=== PATIENT | male | born 1975 | race Caucasian/White ===

== ENCOUNTER 2016-05-08 09:05 | Emergency (ER) | payer SELFPAY ==
[2016-05-08 09:19] VITALS: BP 110/76
[2016-05-08] MEDS ORDERED: METOCLOPRAMIDE HCL 10 MG TABLET PO ONE (10:12)
[2016-05-08] MEDS ORDERED: DIPHENHYDRAMINE HCL 25 MG CAPSULE PO ONE (10:13)
[2016-05-08] MEDS ORDERED: DICYCLOMINE HCL 20 MG TABLET PO ONE (10:13)
[2016-05-08 10:52] LABS: ABSOLUTE LYMPHOCYTES (AUTO) 3.2 10^3/uL (0.5-4.7); ABSOLUTE MONOCYTES (AUTO) 0.8 10^3/uL (0.1-1.4); ABSOLUTE NEUT (AUTO) 9.9 10^3/uL (1.7-8.2); BASOPHILS % (AUTO) 0.3 % (0-2); EOSINOPHILS % (AUTO) 0.3 % (0-6); HEMATOCRIT 42.1 % (37.9-51.0); HGB HCT DIFFERENCE -0.1; LYMPHOCYTES % (AUTO) 22.9 % (13-45); MEAN CORPUSCULAR HEMOGLOBIN 28.3 pg (27.0-33.4); MEAN CORPUSCULAR HGB CONC 33.3 g/dL (32.0-36.0); MEAN CORPUSCULAR VOLUME 85 fl (80-97); MONOCYTES % (AUTO) 5.6 % (3-13); RED BLOOD COUNT 4.95 10^6/uL (4.35-5.55); RED CELL DISTRIBUTION WIDTH 14.9 % (11.5-14.0); SEGMENTED NEUTROPHILS % (AUTO) 70.9 % (42-78)
[2016-05-08 10:55] LABS: APPEARANCE,URINE CLEAR; BILIRUBIN,URINE NEGATIVE (NEGATIVE); GLUCOSE, URINE NEGATIVE (NEGATIVE); KETONES,URINE TRACE mg/dL (NEGATIVE); LEUKOCYTE ESTERASE,URINE NEGATIVE (NEGATIVE); NITRITE,URINE NEGATIVE (NEGATIVE); PROTEIN,URINE NEGATIVE (NEGATIVE); URINE SPECIFIC GRAVITY 1.014; UROBILINOGEN,URINE NEGATIVE mg/dL (<2.0)
[2016-05-08 11:13] LABS: ALANINE AMINOTRANSFERASE 20 U/L (21-72); ALBUMIN 3.7 g/dL (3.5-5.0); ALKALINE PHOSPHATASE 60 U/L (38-126); ANION GAP 7 (5-19); ASPARTATE AMINO TRANSFERASE 19 U/L (17-59); BILIRUBIN,TOTAL 0.8 mg/dL (0.2-1.3); BLOOD UREA NITROGEN 12 mg/dL (7-20); CALCIUM 9.3 mg/dL (8.4-10.2); CARBON DIOXIDE 28 mmol/L (22-30); CHLORIDE 104 mmol/L (98-107); CREATININE RESULT 0.71 mg/dL (0.52-1.25); GLUCOSE 82 mg/dL (75-110); LIPASE 72.8 U/L (23-300); POTASSIUM 4.6 mmol/L (3.6-5.0); SODIUM 138.9 mmol/L (137-145); TOTAL PROTEIN 5.9 g/dL (6.3-8.2)
--- NOTE | 2016-05-08 11:58 | ER Document Report ---
ED GI/ - General Chief Complaint: Abdominal Pain Stated Complaint: STOMACH PAIN Notes: Patient is complaining of pain in the abdomen, this time for the past week. He has had these abdominal pains off and on for a couple of years, since 2014. His last episode was about 3 months ago. On a visit to this emergency department in 08/03/2014, patient had lab workups as well as an ultrasound of his abdomen and his gallbladder and pancreas were normal. He was referred to a flight hostess, but says he was not able to go. The pain he is experiencing is constant and feels as if someone is stabbing him and he points to the very lower portion of his sternum and upper epigastric region. He says that area swells up sometimes. Patient has been nauseated but not vomiting. Has had normal bowel movements except sometimes they're like "paste". Has not seen any blood in his stools or recurrent stools are greenish black in color. Has some burning occasionally with urination. Just getting over a cold. Has not had any fevers. Denies any abdominal surgeries. On no medications. TRAVEL OUTSIDE OF THE [place] IN LAST 30 DAYS: No - Related Data Allergies/Adverse Reactions: codeine [Codeine] Allergy (Verified 05/08/16 09:17) Penicillins Allergy (Verified 05/08/16 09:17) yellow jackets Allergy (Uncoded 05/08/16 09:17) Past Medical History - Social History Smoking Status: Current Every Day Smoker Cigarette use (# per day): Yes Chew tobacco use (# tins/day): No Frequency of alcohol use: None Drug Abuse: None Family History: Reviewed & Not Pertinent, Malignancy - liver, lung cancers, Other - multiple MIs under 50yo father, grandfather, uncle Patient has suicidal ideation: No Patient has homicidal ideation: No - Past Medical History Cardiac Medical History: Reports: Hx Atrial Fibrillation, Hx Hypertension Pulmonary Medical History: Reports: Hx Asthma - childhood Neurological Medical History: Reports: Hx Seizures GI Medical History: Denies: Hx Cirrhosis, Hx Gastritis, Hx Gastroesophageal Reflux Disease, Hx Hepatitis, Hx Hiatal Hernia, Hx Irritable Bowel, Hx Ulcer Past Surgical History: Reports: Hx Oral Surgery - reconstructive, Hx Orthopedic Surgery - right hand, Hx Tonsillectomy - and adenoids - Immunizations Immunizations up to date: Yes Hx Diphtheria, Pertussis, Tetanus Vaccination: Yes - unknown Review of Systems - Review of Systems Notes: REVIEW OF SYSTEMS: CONSTITUTIONAL : Denies fever. EENT: Denies eye, ear, nose or mouth or throat pain or other symptoms. CARDIOVASCULAR: Denies chest pain. RESPIRATORY: Denies cough, chest congestion, or shortness of breath. GASTROINTESTINAL: See history of present illness. GENITOURINARY: See history of present illness. MUSCULOSKELETAL: Denies back or neck pain. Denies joint pain or swelling. SKIN: Denies rash or skin lesions. NEUROLOGICAL: Denies LOC or altered mental status. Denies headache. Denies sensory loss or motor deficits. PSYCHIATRIC: Denies anxiety or stress. Denies depression. ALL OTHER SYSTEMS REVIEWED AND NEGATIVE. Physical Exam - Vital signs Vitals: Temp Pulse Resp BP Pulse Ox 97.2 F 90 22 H 110/76 90 L 05/08/16 09:17 05/08/16 09:17 05/08/16 09:17 05/08/16 09:17 05/08/16 09:17 Interpretation: Normal - Notes Notes: PHYSICAL EXAMINATION: GENERAL: Well-appearing, in no acute distress. Vital signs are all normal. HEAD: Atraumatic, normocephalic. NECK: Normal range of motion, supple. LUNGS: Breath sounds clear and equal bilaterally. HEART: Regular rate and rhythm without murmurs. ABDOMEN: Soft, some tenderness in the epigastrium and also tender at the xiphoid process of the sternum. No guarding or rebound. No masses felt. BACK: No tenderness throughout entire back. EXTREMITIES: Normal range of motion without pain. SKIN: Warm, dry, no rashes. Course - Re-evaluation Re-evalutation: 05/08/16 12:02 Before lab results were returned, patient said he wanted to go outside and smoke a cigarette. Said he was willing to sign out AMA to be able to smoke. Was advised that we don't permit patients to go out and smoke cigarettes and he became rather disagreeable and nasty and said he would just sign out AMA and leave. I overheard a conversation between the patient and the nurse, I did not get an opportunity to talk to the patient. At this time, patient is not in his room and cannot be found in the emergency department, including the waiting rooms and outdoors. Labs recorded show an elevated WBC of 14,000, but otherwise are essentially normal. I was considering ordering a CT scan of the patient's abdomen, but cannot do so, unless he can be located or returns. I attempted to contact the patient by calling the phone number given on his chart and got a message from [employer] that the wireless customer I was trying to reach was not available. It did not offer me the opportunity to leave a message or to put in a call back number. I then tried to call the patient's mother's phone number [phone] and a [employer] message came one saying that the number I had dialed had been changed or disconnected or couple other possibilities, but I could not reach the mother or leave a message. 05/08/16 12:37 - Vital Signs Vital signs: Temp Pulse Resp BP Pulse Ox 97.2 F 90 22 H 110/76 90 L 05/08/16 09:17 05/08/16 09:17 05/08/16 09:17 05/08/16 09:17 05/08/16 09:17 - Laboratory Result Diagrams: 05/08/16 10:28 05/08/16 10:28 Laboratory results interpreted by me: 05/08/16 05/08/16 05/08/16 10:28 10:28 10:38 WBC 14.0 H RDW 14.9 H Absolute Neutrophils 9.9 H ALT 20 L Total Protein 5.9 L Urine Ketones TRACE H Discharge - Discharge Clinical Impression: Abdominal pain Qualifiers: Abdominal location: epigastric Qualified Code(s): R10.13 - Epigastric pain Condition: Stable Disposition: AGAINST MEDICAL ADVICE
== END 2016-05-08 10:57 | disposition left against medical advice (07) ==
LOC: ER 09:05
DX: R10.13 Epigastric pain (principal); F17.210 Nicotine dependence, cigarettes, uncomplicated; I48.91 Unspecified atrial fibrillation; I10 Essential (primary) hypertension; Z88.0 Allergy status to penicillin; Z88.6 Allergy status to analgesic agent
CPT/HCPCS: 99284; 36415; 83690; 85025; 80053; 81001; J3490

== ENCOUNTER 2017-01-18 19:07 | Emergency (ER) | payer SELFPAY ==
[2017-01-18 19:21] VITALS: BP 127/63
== END 2017-01-18 21:09 | disposition left against medical advice (07) ==
LOC: ER 19:07
DX: Z53.21 Procedure and treatment not carried out due to patient leaving prior to being seen by health care provider (principal)

== ENCOUNTER 2017-07-08 08:14 | Emergency (ER) | payer SELFPAY ==
[2017-07-08] MEDS ORDERED: MORPHINE SULFATE 10 MG/ML INJ IV ONE (09:09)
[2017-07-08] MEDS ORDERED: VANCOMYCIN HCL INJ 1000 MG VIAL IV ONE (09:09)
[2017-07-08] MEDS ORDERED: DIPHENHYDRAMINE HCL 50 MG/ML VIAL IV ONE (09:09)
--- NOTE | 2017-07-08 09:11 | ER Document Report ---
ED General - General Chief Complaint: Leg Injury Stated Complaint: RIGHT LEG INJURY Time Seen by Provider: 07/08/17 08:49 Mode of Arrival: Ambulatory Information source: Patient, Relative - family TRAVEL OUTSIDE OF THE [place] IN LAST 30 DAYS: No - HPI Notes: 42-year-old male presents today with complaints of right lower leg pain after a 300 pound fireplace fell on his extremity yesterday as well as right wrist pain from the same fireplace that happened yesterday morning. Reports a laceration to his right lower chatman. Patient states he was wearing steel toed shoes. Reports pain is 6 out of 10, throbbing achy. Unsure of his last tetanus shot. Has not tried any [id number] medications for pain. Patient is unable to bear full weight on her leg. Denies any history of diabetes, hypertension or peripheral vascular disease. Denies fevers, chills, chest pain,palpitations, shortness of breath, dyspnea, nausea, vomiting, diarrhea, abdominal pain, hematuria,blurred vision, double vision, loss of vision, speech changes, LH, dizziness, syncope, headaches, wheezing, ST, URI, neck pain, weakness, bowel or bladder dysfunction, saddle anesthesia, numbness or tingling in bilateral upper or lower extremities equally, muscle paralysis, weakness in bilateral upper or lower extremities equally or rash. Denies IV drug use. - Related Data Allergies/Adverse Reactions: codeine [Codeine] Allergy (Verified 07/08/17 08:15) Penicillins Allergy (Verified 07/08/17 08:15) yellow jackets Allergy (Uncoded 07/08/17 08:15) Past Medical History - General Information source: Patient - Social History Smoking Status: Current Every Day Smoker Chew tobacco use (# tins/day): No Frequency of alcohol use: Occasional Drug Abuse: None Family History: Reviewed & Not Pertinent, Malignancy - liver, lung cancers, Other - multiple MIs under 50yo father, grandfather, uncle Patient has suicidal ideation: No Patient has homicidal ideation: No - Past Medical History Cardiac Medical History: Reports: Hx Atrial Fibrillation, Hx Hypertension Pulmonary Medical History: Reports: Hx Asthma - childhood Neurological Medical History: Reports: Hx Seizures Renal/ Medical History: Denies: Hx Peritoneal Dialysis GI Medical History: Denies: Hx Cirrhosis, Hx Gastritis, Hx Gastroesophageal Reflux Disease, Hx Hepatitis, Hx Hiatal Hernia, Hx Irritable Bowel, Hx Ulcer Infectious Medical History: Denies: Hx Hepatitis Past Surgical History: Reports: Hx Oral Surgery - reconstructive, Hx Orthopedic Surgery - right hand, Hx Tonsillectomy - and adenoids - Immunizations Immunizations up to date: Yes Hx Diphtheria, Pertussis, Tetanus Vaccination: Yes - unknown Review of Systems - Review of Systems Notes: REVIEW OF SYSTEMS: CONSTITUTIONAL : Denies fever, chills, or sweats. Denies recent illness. EENT: Denies eye, ear, throat, or mouth pain or symptoms. Denies nasal or sinus congestion or discharge. Denies throat, tongue, or mouth swelling or difficulty swallowing. CARDIOVASCULAR: Denies chest pain. Denies palpitations or racing or irregular heart beat. Denies ankle edema. RESPIRATORY: Denies cough, cold, or chest congestion. Denies shortness of breath, difficulty breathing, or wheezing. GASTROINTESTINAL: Denies abdominal pain or distention. Denies nausea, vomiting , or diarrhea. Denies blood in vomitus, stools, or per rectum. Denies black, tarry stools. Denies constipation. GENITOURINARY: Denies difficulty urinating, painful urination, burning, frequency, blood in urine, or discharge. MUSCULOSKELETAL: Right lower chatman, ankle and foot pain, right wrist pain denies back or neck pain or stiffness. Denies joint pain or swelling. SKIN: Denies rash, lesions or sores. HEMATOLOGIC : Denies easy bruising or bleeding. LYMPHATIC: Denies swollen, enlarged glands. NEUROLOGICAL: Denies confusion or altered mental status. Denies passing out or loss of consciousness. Denies dizziness or lightheadedness. Denies headache. Denies weakness or paralysis or loss of use of either side. Denies problems with gait or speech. Denies sensory loss, numbness, or tingling. Denies seizures. PSYCHIATRIC: Denies anxiety or stress. Denies depression, suicidal ideation, or homicidal ideation. ALL OTHER SYSTEMS REVIEWED AND NEGATIVE. Dictation was performed using [employer] recognition software PHYSICAL EXAMINATION: GENERAL: Well-appearing, well-nourished and in no acute distress. HEAD: Atraumatic, normocephalic. EYES: Pupils equal round and reactive to light, extraocular movements intact, sclera anicteric, conjunctiva are normal. ENT: Nares patent, oropharynx clear without exudates. Moist mucous membranes. NECK: Normal range of motion, supple without lymphadenopathy LUNGS: Breath sounds clear to auscultation bilaterally and equal. No wheezes rales or rhonchi. HEART: Regular rate and rhythm without murmurs ABDOMEN: Soft, nontender, nondistended abdomen. No guarding, no rebound. No masses appreciated. Musculoskeletal: Normal range of motion, no pitting or edema. No cyanosis. Right lower chatman with a vertical a centimeter laceration that is 0.3 cm in diameter with no drainage. Some ecchymosis noted. Distal pulses +2 in bilateral lower extremities equally. Full motor and sensory function to bilateral lower extremities equally. Skin warm to touch bilaterally in lower legs. Strength 5 out of 5 , DTR +2 in bilateral lower extremities equally. Negative Kaplan test. Positive squeeze test. Cap Refill less than 3 seconds. right wrist with 0.3 cm laceration to medial aspect of wrist, noted erythema with slight induration around the wound edges. No streaking noted. No pain with inversion, eversion, flexion or extension. Snuffbox tenderness negative on right. Normal opposition, abduction and abduction flexion extension of all fingers hand. Radial pulses +2, DTR +2 equally, full motor and sensory function and Strength 5 out of 5 in right upper extremity bilaterally and equally. NEUROLOGICAL: Cranial nerves grossly intact. Normal speech, normal gait. Normal sensory, motor exams PSYCH: Normal mood, normal affect. SKIN: Warm, Dry, normal turgor, no rashes or lesions noted. Physical Exam - Vital signs Vitals: Temp Pulse Resp BP Pulse Ox 98.2 F 76 20 122/64 98 07/08/17 08:19 07/08/17 08:19 07/08/17 08:19 07/08/17 08:19 07/08/17 08:19 Course - Re-evaluation Re-evalutation: 07/08/17 10:22 Healthy 42-year-old male who is afebrile vital stables received a tetanus for his laceration, pain control, patient states he gets "feel like I have for my stomach when I take codeine". CBC negative for any leukocytosis or anemia. CMP today for any renal or hepatic dysfunction, electrolytes normal. Slightly elevated CRP.. CT right lower extremity negative for any acute fractures or dislocations with noted soft tissue swelling. Patient given 1 g of vancomycin, remains afebrile, denies any pain. Discussed results with patient and family that he does not have any fracture, if pain continues to persist consider reevaluation with diagnostic imaging in about 5 days. Follow-up with food safety specialist within 3-5 days as well as PCP. Prescribed antibiotics for patient to take, advised to take with food. Eat yogurt daily to prevent loose stool. Will prescribe crutches and for him to wear Aircast. Discussed rice therapy. Advised patient to take [id number] ibuprofen Tylenol as needed for pain. Return to the emergency room if any symptoms become worse. All questions and concerns answered by this provider. Patient and family verbalized understanding of this plan of care and agree with plan of care. Patient discharged home. 07/08/17 12:16 - Vital Signs Vital signs: Temp Pulse Resp BP Pulse Ox 98.2 F 76 20 122/64 98 07/08/17 08:19 07/08/17 08:19 07/08/17 08:19 07/08/17 08:19 07/08/17 08:19 - Laboratory Result Diagrams: 07/08/17 09:44 07/08/17 09:44 Laboratory results interpreted by me: 07/08/17 07/08/17 09:44 09:44 RDW 14.6 H C-Reactive Protein 12.3 H Discharge - Discharge Clinical Impression: Injury of right lower extremity, Leg laceration, old, Wrist laceration, old, Cellulitis Condition: Good Instructions: Cellulitis ([facility]), Crush Injury ([facility]), Laceration Care ([facility]), Sprained Ankle ([facility]) Additional Instructions: Crush Injury Your injury caused a crushing of the tissues. Crush injuries can include skin damage, bleeding within the tissues (hematoma), and muscle injury. Sometimes the crushing damages a nerve or artery. This usually heals without surgery. If there's a break in the skin with the crushing, it's more prone to infection and takes longer to heal than other cuts. Crush injuries may take a long time to heal. In severe cases, there may be actual of tissues -- for example, the skin may turn black and become a "scab." Crush injuries vary in the amount of pain they cause, and in the length of time required for healing. Typically, the area will become bruised, and will remain painful to touch for two or three weeks. However, most patients are back to working and playing within a few days. After the initial period of rest, elevation, and cold-packs, your symptoms (together with the doctor's recommendations) will determine how rapidly you can get back to full activity. Usually this means "do what feels okay, but don't do things that hurt." If re-examination was recommended, it's important to follow up as instructed. Call the doctor or return any time if pain increases, if swelling becomes severe, if you develop numbness or weakness in an injured extremity, or if any other alarming symptoms occur. Cellulitis You have an infection of your skin and underlying soft tissues called cellulitis. This is due to bacteria, which can enter through any break in the skin, or even through an irritated hair follicle. Untreated, cellulitis will usually worsen. Antibiotics are required. Usually, warm packs or warm soaks, and elevation of the infected area are recommended. You should start getting better within 24 to 36 hours. Most infections respond quickly to the right medication. Follow-up care is important, however, to check for abscess (boil) formation, unsuspected foreign body, or resistant infection. If you develop fever, chills, or if the area of infection is becoming rapidly more swollen or painful, call the doctor at once. Follow-up with food safety specialist within 3-5 days, referral given to Dr. Bel Atkinson. Follow-up with primary care provider within 3-5 days. Take antibiotic with food, eat yogurt daily to prevent loose stool. Apply heat 20 minutes on 20 minutes off to areas of injury. Use crutches as directed. Elevate leg above level of heart. Work note has been given. Take ibuprofen and Tylenol for pain control. Consider an x-ray if he still having pain a week from now of the affected areas. Return to the emergency room if symptoms become worse. Return immediately for any new or worsening symptoms. Follow up with primary care provider, call tomorrow to make followup appointment. Prescriptions: Sulfamethoxazole/Trimethoprim [Bactrim Ds Tablet] 1 each PO BID #20 tablet Forms: Return to Work Referrals: BEL ATKINSON MD [ACTIVE STAFF] - Follow up in 3-5 days KARLIE ANGEL MD [COMMUNITY BASED STAFF] - Follow up in 3-5 days
[2017-07-08 10:05] LABS: ABSOLUTE EOSINOPHILS # (AUTO) 0.1 10^3/uL (0.0-0.6); ABSOLUTE LYMPHOCYTES (AUTO) 2.7 10^3/uL (0.5-4.7); ABSOLUTE MONOCYTES (AUTO) 0.9 10^3/uL (0.1-1.4); ABSOLUTE NEUT (AUTO) 6.8 10^3/uL (1.7-8.2); BASOPHILS % (AUTO) 0.3 % (0-2); EOSINOPHILS % (AUTO) 0.6 % (0-6); HEMATOCRIT 40.9 % (37.9-51.0); HEMOGLOBIN 13.6 g/dL (13.5-17.0); MEAN CORPUSCULAR HGB CONC 33.2 g/dL (32.0-36.0); MEAN CORPUSCULAR VOLUME 88 fl (80-97); MONOCYTES % (AUTO) 8.8 % (3-13); PLATELET COUNT 294 10^3/uL (150-450); RED BLOOD COUNT 4.68 10^6/uL (4.35-5.55); RED CELL DISTRIBUTION WIDTH 14.6 % (11.5-14.0); SEGMENTED NEUTROPHILS % (AUTO) 64.3 % (42-78); TOTAL CELLS COUNTED % (AUTO) 100 %; WHITE BLOOD COUNT 10.5 10^3/uL (4.0-10.5)
[2017-07-08 10:20] LABS: ANION GAP 9 (5-19); BLOOD UREA NITROGEN 16 mg/dL (7-20); C-REACTIVE PROTEIN 12.3 mg/L (<10.0); CALCIUM 9.9 mg/dL (8.4-10.2); CARBON DIOXIDE 30 mmol/L (22-30); CHLORIDE 100 mmol/L (98-107); GLUCOSE 97 mg/dL (75-110); POTASSIUM 4.2 mmol/L (3.6-5.0); SODIUM 138.6 mmol/L (137-145)
--- NOTE | 2017-07-08 10:37 | RADIOLOGY REPORT (SQ) ---
EXAM DESCRIPTION: CT RT LOWER EXTREMITY WITHOUT COMPLETED DATE/TIME: 07/08/2017 10:03 am REASON FOR STUDY: 300lb fireplace landed on R foot/ankle/chatman, +lac COMPARISON: None. TECHNIQUE: Axial imaging performed through the right lower extremity from the mid calf through the f oot. With reformatted coronal and sagittal imaging windowed for bone and soft tissues. Images saved to PACS. 3D IMAGING: Were 3D images as MIP, SSD, or volume rendering performed at the work station? No All CT scanners at this facility use dose modulation, iterative reconstruction, and/or weight based d osing when appropriate to reduce radiation dose to as low as reasonably achievable (ALARA). [facility]: Dose Right [facility]: CareDose [facility]: Dose Right [facility]: Teradose 4D [facility]: [employer]ank LIMITATIONS: None. RADIATION DOSE: CT Rad equipment meets quality standard of care and radiation dose reduction techniq ues were employed. CTDIvol: 4.1 mGy. DLP: 185 mGy-cm. mGy. FINDINGS: SOFT TISSUES: There is a soft tissue contusion along the medial right lower leg. No well- circumscribed hematoma. No soft tissue gas or radiopaque foreign body. BONES: No acute fracture. No dislocation. MINERALIZATION: Normal. OTHER: No other significant finding. IMPRESSION: No fracture. Soft tissue contusion medial right lower leg. TECHNICAL DOCUMENTATION: JOB ID: [id number] Quality ID # [id number]: Final reports with documentation of one or more dose reduction techniques (e.g., Au tomated exposure control, adjustment of the mA and/or kV according to patient size, use of iterative reconstruction technique) 2010 [employer]- All Rights Reserved Reading location - IP/workstation name: [email or web address]
[2017-07-08 12:32] VITALS: BP 127/68
== END 2017-07-08 12:38 | disposition home or self-care (01) ==
LOC: ER 08:14
DX: S81.811A Laceration without foreign body, right lower leg, initial encounter (principal); S61.511A Laceration without foreign body of right wrist, initial encounter; L03.90 Cellulitis, unspecified; M25.571 Pain in right ankle and joints of right foot; M79.671 Pain in right foot; W20.8XXA Other cause of strike by thrown, projected or falling object, initial encounter; F17.200 Nicotine dependence, unspecified, uncomplicated; I10 Essential (primary) hypertension; Z88.0 Allergy status to penicillin; Z91.038 Other insect allergy status; Z88.5 Allergy status to narcotic agent; Z23 Encounter for immunization
CPT/HCPCS: 99284; 96375; 96365; 36415; 87040; 85025; 86140; 80048; 73700; L1902; J1200; J2270; J3370

== ENCOUNTER 2018-01-24 07:42 | Emergency (ER) | payer SELFPAY ==
--- NOTE | 2018-01-24 08:50 | ER Document Report ---
ED General - General Chief Complaint: Abdominal Pain Stated Complaint: ABDOMINAL PAIN Time Seen by Provider: 01/24/18 08:31 TRAVEL OUTSIDE OF THE [place] IN LAST 30 DAYS: No - HPI Notes: Patient is a 42-year-old male that presents to the emergency department for chief complaint of abdominal pain. Patient states he has had abdominal pain for as long as he can remember. He states the pain has been there since he was young child. He has been seen on multiple occasions in the emergency room for this pain. He states that there is no change in his pain today however family members convinced him he needs to be evaluated again. He reports a sharp pain in his right upper quadrant radiating down into his right lower quadrant. Patient states that it is worse when he eats and drinks. He denies any relieving factors. He states that there is no change today from the previous few years. He states about 1 year ago was his last evaluation for this pain and he was told that he may have pancreatic cancer. He does have a family history of cancer but he is not sure which kind. He did not have any follow-up since being seen to further pursue cancer diagnosis. He reports some mild nausea but denies any vomiting. He denies any fevers. He does state that occasionally he has diarrhea but has not had any for the last few days. Past Medical History: Negative Past Surgical History: Facial fracture repair, right hand fracture repair Social History: Early tobacco. Occasional alcohol. 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 REVIEW OF SYSTEMS: CONSTITUTIONAL : No fever No chills No diaphoresis No recent illness EENT: No vision changes No congestion No sore throat CARDIOVASCULAR: No chest pain No palpitations RESPIRATORY: No shortness of breath No cough No difficulty breathing GASTROINTESTINAL: abdominal pain nausea No vomiting diarrhea GENITOURINARY: No dysuria No hematuria No difficulty urinating MUSCULOSKELETAL: No back pain No leg pain No arm pain SKIN: No rashes No lesions LYMPHATIC: No swollen, enlarged glands. NEUROLOGICAL: No lightheadedness No headache No weakness No paresthesias PSYCHIATRIC: No anxiety No depression PHYSICAL EXAMINATION: Vital signs reviewed, nursing noted reviewed. GENERAL: Well-appearing, well-nourished and in no acute distress. HEAD: Atraumatic, normocephalic. EYES: Eyes appear normal, extraocular movements intact, sclera anicteric, conjunctiva are normal. ENT: nares patent, oropharynx clear without exudates. Moist mucous membranes. NECK: Normal range of motion, supple without lymphadenopathy LUNGS: Breath sounds clear to auscultation bilaterally and equal. No wheezes rales or rhonchi. HEART: Regular rate and rhythm without murmurs ABDOMEN: Soft, diffuse tenderness worse in the right upper and right lower quadrant, normoactive bowel sounds. No rebound, guarding, or rigidity. No masses appreciated. EXTREMITIES: Nontender, good range of motion, no pitting or edema. NEUROLOGICAL: No focal neurological deficits. Moves all extremities spontaneously Motor and sensory grossly intact on exam. PSYCH: Normal mood, normal affect. SKIN: Warm, Dry, normal turgor, no rashes or lesions noted on exposed skin - Related Data Allergies/Adverse Reactions: codeine [Codeine] Allergy (Verified 01/24/18 08:40) Penicillins Allergy (Verified 01/24/18 08:40) yellow jackets Allergy (Uncoded 01/24/18 08:40) Past Medical History - Social History Smoking Status: Current Every Day Smoker Frequency of alcohol use: Occasional Family History: Reviewed & Not Pertinent, Malignancy - liver, lung cancers, Other - multiple MIs under 50yo father, grandfather, uncle Patient has suicidal ideation: No Patient has homicidal ideation: No - Past Medical History Cardiac Medical History: Reports: Hx Atrial Fibrillation, Hx Hypertension Pulmonary Medical History: Reports: Hx Asthma - childhood Neurological Medical History: Reports: Hx Seizures Renal/ Medical History: Denies: Hx Peritoneal Dialysis GI Medical History: Denies: Hx Cirrhosis, Hx Gastritis, Hx Gastroesophageal Reflux Disease, Hx Hepatitis, Hx Hiatal Hernia, Hx Irritable Bowel, Hx Ulcer Infectious Medical History: Denies: Hx Hepatitis Past Surgical History: Reports: Hx Oral Surgery - reconstructive, Hx Orthopedic Surgery - right hand, Hx Tonsillectomy - and adenoids - Immunizations Immunizations up to date: Yes Hx Diphtheria, Pertussis, Tetanus Vaccination: Yes - unknown Review of Systems - Review of Systems Notes: Dictated Physical Exam - Vital signs Vitals: Temp Pulse Resp BP Pulse Ox 97.7 F 72 18 125/87 H 99 01/24/18 07:48 01/24/18 07:48 01/24/18 07:48 01/24/18 07:48 01/24/18 07:48 - Notes Notes: Dictated Course - Re-evaluation Re-evalutation: 01/24/18 08:50 Vitals reviewed. Nursing notes reviewed. Patient offered pain medication and antiemetics but declined. 01/24/18 10:51 Patient reevaluated and unchanged. He still does not want any pain or nausea medicine. His lab work is unremarkable. CT scan shows no acute process including masses. I did explain that I have not performed a thorough cancer screening today and I did advise that he follow with primary care for further cancer workup since he has been told he may have cancer in the past. Patient understands this and will follow with primary care. He will return for new or worsening symptoms. Discharged home in stable condition. - Vital Signs Vital signs: Temp Pulse Resp BP Pulse Ox 97.7 F 72 18 125/87 H 99 01/24/18 07:48 01/24/18 07:48 01/24/18 07:48 01/24/18 07:48 01/24/18 07:48 - Laboratory Result Diagrams: 01/24/18 09:05 01/24/18 09:05 Laboratory results interpreted by me: 01/24/18 01/24/18 09:05 09:05 RDW 14.3 H ALT 14 L Total Protein 6.0 L Discharge - Discharge Clinical Impression: Chronic abdominal pain Condition: Stable Disposition: HOME, SELF-CARE Instructions: Abdominal Pain ([facility]), Family Physicians / Practices Additional Instructions: Please return to the emergency department if you have any worsening, or concern of your symptoms. Please return to the emergency department if you develop chest pain, difficulty breathing, severe abdominal pain, or ongoing vomiting. Please follow-up with your primary care physician in 2-3 days and any other recommended physicians. If prescribed, take all medications as directed. If you have any questions or concerns do not hesitate to return the emergency department for evaluation. Since you have previously been told that you may have cancer you need to follow with primary care for a more thorough cancer workup. I did not do a thorough cancer screening today although no masses were seen on your CT scan. Because of the persistence of your pain and family history you should have routine cancer screening test done by a primary care doctor
[2018-01-24 09:18] LABS: ABSOLUTE EOSINOPHILS # (AUTO) 0.1 10^3/uL (0.0-0.6); ABSOLUTE LYMPHOCYTES (AUTO) 2.7 10^3/uL (0.5-4.7); ABSOLUTE MONOCYTES (AUTO) 0.8 10^3/uL (0.1-1.4); ABSOLUTE NEUT (AUTO) 6.4 10^3/uL (1.7-8.2); BASOPHILS % (AUTO) 0.2 % (0-2); EOSINOPHILS % (AUTO) 1.2 % (0-6); HEMATOCRIT 39.9 % (37.9-51.0); HEMOGLOBIN 13.5 g/dL (13.5-17.0); LYMPHOCYTES % (AUTO) 26.9 % (13-45); MEAN CORPUSCULAR HEMOGLOBIN 29.7 pg (27.0-33.4); MEAN CORPUSCULAR HGB CONC 33.8 g/dL (32.0-36.0); MEAN CORPUSCULAR VOLUME 88 fl (80-97); MONOCYTES % (AUTO) 7.6 % (3-13); PLATELET COUNT 192 10^3/uL (150-450); RED BLOOD COUNT 4.53 10^6/uL (4.35-5.55); RED CELL DISTRIBUTION WIDTH 14.3 % (11.5-14.0); SEGMENTED NEUTROPHILS % (AUTO) 64.1 % (42-78); TOTAL CELLS COUNTED % (AUTO) 100 %
[2018-01-24 09:43] LABS: ALANINE AMINOTRANSFERASE 14 U/L (21-72); ALBUMIN 3.9 g/dL (3.5-5.0); ALKALINE PHOSPHATASE 56 U/L (38-126); ANION GAP 6 (5-19); ASPARTATE AMINO TRANSFERASE 18 U/L (17-59); BILIRUBIN,DIRECT 0.2 mg/dL (0.0-0.4); BILIRUBIN,TOTAL 0.7 mg/dL (0.2-1.3); BLOOD UREA NITROGEN 15 mg/dL (7-20); CALCIUM 9.5 mg/dL (8.4-10.2); CARBON DIOXIDE 29 mmol/L (22-30); CHLORIDE 105 mmol/L (98-107); GLUCOSE 95 mg/dL (75-110); LIPASE 86.4 U/L (23-300); POTASSIUM 4.5 mmol/L (3.6-5.0); SODIUM 140.3 mmol/L (137-145)
--- NOTE | 2018-01-24 10:43 | RADIOLOGY REPORT (SQ) ---
EXAM DESCRIPTION: CT ABD/PELVIS WITH IV ONLY COMPLETED DATE/TIME: 01/24/2018 10:25 am REASON FOR STUDY: RUQ/RLQ pain COMPARISON: None. TECHNIQUE: CT scan of the abdomen and pelvis performed using helical scanning technique with dynamic intravenous contrast injection. No oral contrast. Images reviewed with lung, soft tissue, and bone windows. Reconstructed coronal and sagittal MPR images reviewed. Delayed images for evaluation of the urinary system also acquired. All images stored on PACS. All CT scanners at this facility use dose modulation, iterative reconstruction, and/or weight based d osing when appropriate to reduce radiation dose to as low as reasonably achievable (ALARA). [facility]: Dose Right [facility]: CareDose [facility]: Dose Right [facility]: Teradose 4D [facility]: [employer] CONTRAST TYPE AND DOSE: contrast/concentration: Isovue 350.00 mg/ml; Total Contrast Delivered: 65.0 ml; Total Saline Delivered: 65.0 ml RENAL FUNCTION: GFR > 60. RADIATION DOSE: CT Rad equipment meets quality standard of care and radiation dose reduction techniq ues were employed. CTDIvol: 4.8 - 4.9 mGy. DLP: 513 mGy-cm.. LIMITATIONS: None. FINDINGS: LOWER CHEST: No significant findings. No nodules or infiltrates. LIVER: Normal size. No masses. No dilated ducts. SPLEEN: Normal size. No focal lesions. PANCREAS: No masses. No significant calcifications. No adjacent inflammation or peripancreatic fluid collections. Pancreatic duct not dilated. GALLBLADDER: No identified stones by CT criteria. No inflammatory changes to suggest cholecystitis. ADRENAL GLANDS: No significant masses or asymmetry. RIGHT KIDNEY AND URETER: No solid masses. No significant calcifications. No hydronephrosis or hyd roureter. LEFT KIDNEY AND URETER: No solid masses. No significant calcifications. No hydronephrosis or hydr oureter. AORTA AND VESSELS: No aneurysm. No dissection. Renal arteries, SMA, celiac without stenosis. RETROPERITONEUM: No retroperitoneal adenopathy, hemorrhage or masses. BOWEL AND PERITONEAL CAVITY: No masses or inflammatory changes. No free fluid or peritoneal masses. APPENDIX: Normal. PELVIS: No mass. No free fluid. Normal bladder. ABDOMINAL WALL: No masses. No hernias. BONES: No significant or acute findings. OTHER: No other significant finding. IMPRESSION: NO SIGNIFICANT OR ACUTE FINDING IN THE ABDOMEN OR PELVIS ON CT SCAN WITH IV CONTRAST. TECHNICAL DOCUMENTATION: JOB ID: [id number] Quality ID # [id number]: Final reports with documentation of one or more dose reduction techniques (e.g., Au tomated exposure control, adjustment of the mA and/or kV according to patient size, use of iterative reconstruction technique) 2010 [employer]- All Rights Reserved Reading location - IP/workstation name: [facility]
[2018-01-24 11:02] VITALS: BP 117/60
== END 2018-01-24 11:15 | disposition home or self-care (01) ==
LOC: ER 07:42
DX: R10.9 Unspecified abdominal pain (principal); R10.31 Right lower quadrant pain; G89.29 Other chronic pain; F17.200 Nicotine dependence, unspecified, uncomplicated; I10 Essential (primary) hypertension; J45.909 Unspecified asthma, uncomplicated
CPT/HCPCS: 36415; 74177; 80053; 83690; 85025; 99284

== ENCOUNTER 2018-05-14 09:14 | Emergency (ER) | payer SELFPAY ==
[2018-05-14] MEDS ORDERED: IPRATROPIUM/ALBUTEROL 0.5-2.5 MG/3 ML AMPUL NEB ONE (09:27)
[2018-05-14] MEDS ORDERED: METHYLPREDNISOLONE INJ 125 MG/2 ML SDV IM ONE (09:27)
[2018-05-14 09:29] VITALS: BP 127/74
--- NOTE | 2018-05-14 09:38 | ER Document Report ---
HPI - HPI Time Seen by Provider: 05/14/18 09:25 Pain Level: 2 Notes: Patient is a 43-year-old male with a history of carpal tunnel to his right wrist who presents emergency department complaining of acute exacerbation of his carpal tunnel syndrome after using a jackhammer for a few days recently. 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 Patient states that he was told he had carpal tunnel in the past, but has not had a procedure for it. Naproxen has been helping. No other concerns or complaints. No other known injury. Denies any headache, fever, URI, sore throat, chest pain, palpitations, syncope, cough, shortness of breath, wheeze, dyspnea, abdominal pain, nausea/vomiting/diarrhea, urinary retention, dysuria, hematuria, muscle paralysis, or rash. - ROS Systems Reviewed and Negative: Yes All other systems reviewed and negative Past Medical History - Social History Smoking Status: Current Every Day Smoker Family History: Reviewed & Not Pertinent, Malignancy - liver, lung cancers, Other - multiple MIs under 50yo father, grandfather, uncle Patient has suicidal ideation: No Patient has homicidal ideation: No - Past Medical History Cardiac Medical History: Reports: Hx Atrial Fibrillation, Hx Hypertension Pulmonary Medical History: Reports: Hx Asthma - childhood Neurological Medical History: Reports: Hx Seizures Renal/ Medical History: Denies: Hx Peritoneal Dialysis GI Medical History: Denies: Hx Cirrhosis, Hx Gastritis, Hx Gastroesophageal Reflux Disease, Hx Hepatitis, Hx Hiatal Hernia, Hx Irritable Bowel, Hx Ulcer Infectious Medical History: Denies: Hx Hepatitis Past Surgical History: Reports: Hx Oral Surgery - reconstructive, Hx Orthopedic Surgery - right hand, Hx Tonsillectomy - and adenoids - Immunizations Immunizations up to date: Yes Hx Diphtheria, Pertussis, Tetanus Vaccination: Yes - unknown Vertical Provider Document - CONSTITUTIONAL Agree With Documented VS: Yes Notes: PHYSICAL EXAMINATION: GENERAL: Well-appearing, well-nourished and in no acute distress. NECK: Normal range of motion, supple without lymphadenopathy. no midline tenderness. Spurling negative. LUNGS: Breath sounds clear to auscultation bilaterally and equal. No wheezes rales or rhonchi. HEART: Regular rate and rhythm without murmurs, rubs, gallops. Musculoskeletal: Rt wrist/hand: No ecchymosis, erythema, deformity, warmth, or signs of infection. FROM to passive/active. Strength 4+/5 to technology coordinator. No obvious signs of atrophy. Tinel/Phalen positive. N/V intact distal Extremities: No cyanosis, clubbing, or edema b/l. Peripheral pulses 2+. Capillary refill less than 3 seconds. NEUROLOGICAL: Normal speech, normal gait. PSYCH: Normal mood, normal affect. SKIN: Warm, Dry, normal turgor, no rashes or lesions noted. - INFECTION CONTROL TRAVEL OUTSIDE OF THE [place] IN LAST 30 DAYS: No Course - Re-evaluation Re-evalutation: 05/14/18 09:36 Patient is an afebrile, well-hydrated, 43-year-old male who presents to the ED with Rt wrist pain which I suspect to be CTS. Vitals are acceptable without any significant tachycardia, tachypnea, or hypoxia. PE is otherwise unremarkable for any neurovascular compromise, obvious tendon/ligament rupture, obvious fracture/dislocation, septic joint. Cock-up provided today. Patient declined any Tylenol or ice. Patient is nontoxic-appearing. No other labs or imaging warranted at this time based on H&P. Conservative measures otherwise for symptoms. Recheck with your PCM in 3-5 days. Consider consult orthopedics. Return to the ED with any worsening/concerning symptoms otherwise as reviewed in discharge. Patient is in agreement. - Vital Signs Vital signs: Temp Pulse Resp BP Pulse Ox 97.8 F 69 16 127/74 H 100 05/14/18 09:27 05/14/18 09:27 05/14/18 09:27 05/14/18 09:27 05/14/18 09:27 Discharge - Discharge Clinical Impression: Carpal tunnel syndrome of right wrist Condition: Stable Disposition: HOME, SELF-CARE Instructions: Carpal Tunnel Syndrome ([facility]) Additional Instructions: Rest, Ice, Compression, Elevation Use splint as directed Tylenol/ibuprofen as needed Light stretches daily Strength exercises as able Moist heat and massage may help F/u with your PCP in 3-5 days for a recheck Consider consult(s) with Orthopedics/physical therapy for ongoing/worsening symptoms Return to the ED with any worsening symptoms and/or development of fever, hea dache, chest pain, palpitations, syncope, shortness of breath, trouble breathing, abdominal pain, n/v/d, muscle weakness/paralysis, numbness/tingling, swelling, redness, or other worsening symptoms that are concerning to you. Prescriptions: Diclofenac Sodium [Voltaren] 4 gm TP QID PRN #100 gel..gm. PRN Reason: Forms: Elevated Blood Pressure, Smoking Cessation Education Referrals: [facility] [Provider Group] - Follow up as needed
== END 2018-05-14 09:42 | disposition home or self-care (01) ==
LOC: ER 09:14
DX: G56.01 Carpal tunnel syndrome, right upper limb (principal); M25.531 Pain in right wrist; F17.200 Nicotine dependence, unspecified, uncomplicated; I48.91 Unspecified atrial fibrillation; I10 Essential (primary) hypertension
CPT/HCPCS: 99283; L3908

== ENCOUNTER 2018-07-11 01:17 | Emergency (ER) | payer SELFPAY ==
--- NOTE | 2018-07-11 03:20 | RADIOLOGY REPORT (SQ) ---
EXAM DESCRIPTION: XR CHEST 1 VIEW COMPLETED DATE/TME: 07/11/2018 01:56 CLINICAL HISTORY: 43 years Male, cough COMPARISON:Nov 26 2014 NUMBER OF VIEWS/TECHNIQUE: 1/AP FINDINGS: Adequate lung volume, clear parenchyma, normal cardiac silhouette, and intact bony thorax. IMPRESSION: No acute cardiopulmonary findings.
[2018-07-11] MEDS ORDERED: DEXAMETHASONE 4 MG TABLET PO ONE (03:28)
[2018-07-11] MEDS ORDERED: ALBUTEROL SULFATE HFA (90 MCG/PUFF) 200 PUFF/8.5 GM MDI IH ONE (03:28)
[2018-07-11] MEDS ORDERED: BENZONATATE 100 MG CAPSULE PO ONE (03:30)
--- NOTE | 2018-07-11 03:34 | ER Document Report ---
ED General - General Chief Complaint: Cough Stated Complaint: COUGH Time Seen by Provider: 07/11/18 01:56 Notes: Patient is a 43-year-old male without chronic medical problems, current everyday tobacco user, presents complaining of persistent cough for the past 2 weeks. Patient also reports that he intermittently feels mildly short of breath. He states that these episodes of shortness of breath occur after periods of very prolonged coughing. Patient notes that he feels that he has some nausea after coughing persistently as well. He notes that nothing seems to improve his symptoms. Taking a deep breath, laughing trigger or worsen his symptoms. Has a history of similar symptoms in the past with bronchitis. Does not have a primary care physician. Continues to smoke during this time. Has not had fever or constitutional symptoms. TRAVEL OUTSIDE OF THE [place] IN LAST 30 DAYS: No - Related Data Allergies/Adverse Reactions: codeine [Codeine] Allergy (Verified 05/14/18 09:15) Penicillins Allergy (Verified 05/14/18 09:15) yellow jackets Allergy (Uncoded 05/14/18 09:15) Past Medical History - General Information source: Patient - Social History Smoking Status: Current Every Day Smoker Cigarette use (# per day): Yes - 1 pack/day Chew tobacco use (# tins/day): No Smoking Education Provided: Yes - Smoking cessation counseling was provided for 4 minutes at the bedside Frequency of alcohol use: Occasional Drug Abuse: None Lives with: Spouse/Significant other Family History: Reviewed & Not Pertinent, Malignancy - liver, lung cancers, Other - multiple MIs under 50yo father, grandfather, uncle Patient has suicidal ideation: No Patient has homicidal ideation: No - Past Medical History Cardiac Medical History: Reports: Hx Atrial Fibrillation, Hx Hypertension Pulmonary Medical History: Reports: Hx Asthma - childhood Neurological Medical History: Reports: Hx Seizures Renal/ Medical History: Denies: Hx Peritoneal Dialysis GI Medical History: Denies: Hx Cirrhosis, Hx Gastritis, Hx Gastroesophageal Reflux Disease, Hx Hepatitis, Hx Hiatal Hernia, Hx Irritable Bowel, Hx Ulcer Infectious Medical History: Denies: Hx Hepatitis Past Surgical History: Reports: Hx Oral Surgery - reconstructive, Hx Orthopedic Surgery - right hand, Hx Tonsillectomy - and adenoids - Immunizations Immunizations up to date: Yes Hx Diphtheria, Pertussis, Tetanus Vaccination: Yes - unknown Review of Systems - Review of Systems Notes: Constitutional: Negative for fever. HENT: Negative for sore throat. Eyes: Negative for visual changes. Cardiovascular: Negative for chest pain. Respiratory: Positive for persistent cough Gastrointestinal: Negative for abdominal pain, vomiting or diarrhea. Genitourinary: Negative for dysuria. Musculoskeletal: Negative for back pain. Skin: Negative for rash. Neurological: Negative for headaches, weakness or numbness. 10 point ROS negative except as marked above and in HPI. Physical Exam - Vital signs Vitals: Temp Pulse Resp BP Pulse Ox 98.2 F 75 25 H 121/70 97 07/11/18 01:31 07/11/18 01:31 07/11/18 01:31 07/11/18 01:31 07/11/18 01:31 Interpretation: Tachypneic - Respiratory rate 18 at the time of my assessment Notes: PHYSICAL EXAMINATION: GENERAL: Well-appearing, well-nourished and in no acute distress. HEAD: Atraumatic, normocephalic. EYES: Pupils equal round and reactive to light, extraocular movements intact, sclera anicteric, conjunctiva are normal. ENT: nares patent, oropharynx clear without exudates. Moist mucous membranes. NECK: Normal range of motion, supple without lymphadenopathy LUNGS: Breath sounds clear to auscultation bilaterally and equal. Faint expiratory wheezing throughout. HEART: Regular rate and rhythm without murmurs ABDOMEN: Soft, nontender, normoactive bowel sounds. No guarding, no rebound. No masses appreciated. EXTREMITIES: Normal range of motion, no pitting or edema. No cyanosis. NEUROLOGICAL: No focal neurological deficits. Moves all extremities spontaneously and on command. PSYCH: Normal mood, normal affect. SKIN: Warm, Dry, normal turgor, no rashes or lesions noted. Course - Re-evaluation Re-evalutation: 07/11/18 03:30 Patient presents with a clinical history and exam most consistent with an acute viral bronchitis. Patient is overall well in appearance without tachypnea, hypoxemia, tachycardia, or difficulty with ambulation. Breath sounds are clear bilaterally. No fever. Patient does have additional signs of upper respiratory infection including nasal congestion, sore throat, and sinus pressure. Chest x-ray is clear. Will treat with bronchodilators, single dose of dexamethasone, and Tessalon Perles. At this time will discharge with return precautions and follow-up recommendations. Verbal discharge instructions given a the bedside and opportunity for questions given. Medication warnings reviewed. Patient is in agreement with this plan and has verbalized understanding of return precautions and the need for primary care follow-up in the next 24-72 hours. - Vital Signs Vital signs: Temp Pulse Resp BP Pulse Ox 98.2 F 75 25 H 121/70 97 07/11/18 01:31 07/11/18 01:31 07/11/18 01:31 07/11/18 01:31 07/11/18 01:31 - Diagnostic Test Radiology reviewed: Image reviewed, Reports reviewed Radiology results interpreted by me: 07/11/18 03:31 Chest x-ray: No acute infiltrate or pneumothorax Discharge - Discharge Clinical Impression: Bronchitis, Persistent cough Condition: Good Disposition: HOME, SELF-CARE Additional Instructions: You were seen for symptoms most consistent with bronchitis. This can take up to 12 weeks to fully resolve. This is generally due to a viral infection. Please follow-up with your primary doctor in the next 2-3 days. Return if you develop worsening cough, vomiting, fever >100.4, pass out, begin coughing blood, or have any other symptoms that are concerning to you. Please use the medications prescribed today as directed.
[2018-07-11 03:57] VITALS: BP 110/51
== END 2018-07-11 03:55 | disposition home or self-care (01) ==
LOC: ER 01:17
DX: J40 Bronchitis, not specified as acute or chronic (principal); R05 Cough; R09.81 Nasal congestion; J02.9 Acute pharyngitis, unspecified; J34.89 Other specified disorders of nose and nasal sinuses; R06.02 Shortness of breath; R11.0 Nausea; I10 Essential (primary) hypertension; F17.210 Nicotine dependence, cigarettes, uncomplicated; Z71.6 Tobacco abuse counseling; Z88.0 Allergy status to penicillin; Z91.038 Other insect allergy status; Z88.5 Allergy status to narcotic agent
CPT/HCPCS: 99406; 99283; 71045; J3490

== ENCOUNTER 2018-09-02 09:21 | Emergency (ER) | payer SELFPAY ==
[2018-09-02 10:22] LABS: ABSOLUTE EOSINOPHILS # (AUTO) 0.1 10^3/uL (0.0-0.6); ABSOLUTE LYMPHOCYTES (AUTO) 2.9 10^3/uL (0.5-4.7); ABSOLUTE MONOCYTES (AUTO) 0.8 10^3/uL (0.1-1.4); BASOPHILS % (AUTO) 0.3 % (0-2); EOSINOPHILS % (AUTO) 0.8 % (0-6); HEMATOCRIT 39.9 % (37.9-51.0); HEMOGLOBIN 13.2 g/dL (13.5-17.0); LYMPHOCYTES % (AUTO) 24.2 % (13-45); MEAN CORPUSCULAR HEMOGLOBIN 28.7 pg (27.0-33.4); MEAN CORPUSCULAR HGB CONC 33.1 g/dL (32.0-36.0); MEAN CORPUSCULAR VOLUME 87 fl (80-97); MONOCYTES % (AUTO) 7.2 % (3-13); PLATELET COUNT 253 10^3/uL (150-450); RED BLOOD COUNT 4.61 10^6/uL (4.35-5.55); RED CELL DISTRIBUTION WIDTH 14.7 % (11.5-14.0); SEGMENTED NEUTROPHILS % (AUTO) 67.5 % (42-78); TOTAL CELLS COUNTED % (AUTO) 100 %; WHITE BLOOD COUNT 11.8 10^3/uL (4.0-10.5)
[2018-09-02 10:27] LABS: ALANINE AMINOTRANSFERASE 18 U/L (21-72); ALBUMIN 4.2 g/dL (3.5-5.0); ALKALINE PHOSPHATASE 61 U/L (38-126); ANION GAP 10 (5-19); ASPARTATE AMINO TRANSFERASE 15 U/L (17-59); BILIRUBIN,DIRECT 0.2 mg/dL (0.0-0.4); BILIRUBIN,TOTAL 1.3 mg/dL (0.2-1.3); BLOOD UREA NITROGEN 10 mg/dL (7-20); CARBON DIOXIDE 29 mmol/L (22-30); CHLORIDE 103 mmol/L (98-107); CREATINE KINASE 84 U/L (55-170); GLUCOSE 81 mg/dL (75-110); POTASSIUM 4.3 mmol/L (3.6-5.0); SODIUM 142.1 mmol/L (137-145); TOTAL PROTEIN 6.6 g/dL (6.3-8.2)
[2018-09-02 10:35] LABS: CREATINE KINASE MB 0.66 ng/mL (<4.55)
[2018-09-02 10:39] LABS: TROPONIN I < 0.012 ng/mL
[2018-09-02 10:55] LABS: APPEARANCE,URINE CLEAR; BILIRUBIN,URINE NEGATIVE (NEGATIVE); COLOR,URINE YELLOW; GLUCOSE, URINE NEGATIVE (NEGATIVE); KETONES,URINE NEGATIVE (NEGATIVE); LEUKOCYTE ESTERASE,URINE NEGATIVE (NEGATIVE); NITRITE,URINE NEGATIVE (NEGATIVE); PROTEIN,URINE NEGATIVE (NEGATIVE); URINE SPECIFIC GRAVITY 1.019
--- NOTE | 2018-09-02 10:55 | ER Document Report ---
Entered by GENNARO REYES SCRIBE 09/02/18 1016 Acting as scribe for:ZACH IQBAL MD ED General - General Chief Complaint: Fainting Stated Complaint: POSSIBLE SYNCOPE Time Seen by Provider: 09/02/18 09:33 Mode of Arrival: Ambulatory Information source: Patient Notes: Patient is a 43 year old male presenting to the emergency department complaining of right sided weakness and numbness followed by a syncopal episode. Patient states he began to have right arm weakness and right facial numbness around 0830 this morning. He states shortly after he passed out then remembers waking up with people around him. He states he has left sided facial numbness 4-5x a week followed by a syncopal episode described as "blacking and spacing out" 2-3x a week that lasts for 10-15 minutes. Patient states he normally does not see a provider when he has these episodes and continues his day normally. He states he only presented to the emergency department today because other people witnessed his syncopal episode. He report he continues to have some right arm and facial weakness. Patient mentions having as syncopal episode in September of 2015 [place] where his "heart stopped". He states a registered nurse that was around began doing CPR and paramedics were called. He reports being diagnosed with Afib and transported to the ED but LWBS. He also mentions chronic abdominal pain further stating he was told he could possibly have " IBS, Crohn's or cancer". He states he has not had any follow up work done. Much later history from the patient is that he has a bad headache across the front of his head. He has migraine since he was a young child. He frequently has numbness to his entire left side when he gets his migraines and will lose vision. He normally takes BCs. He reports yesterday a coworker dropped a drill from about 10 feet above which struck him in the left frontal head region. He states he woke up this morning with a headache in that general area and it is lasted all day and now has progressed over to the right side. He states this feels like the migraines he gets. TRAVEL OUTSIDE OF THE [place] IN LAST 30 DAYS: No - Related Data Allergies/Adverse Reactions: codeine [Codeine] Allergy (Verified 05/14/18 09:15) Penicillins Allergy (Verified 05/14/18 09:15) yellow jackets Allergy (Uncoded 05/14/18 09:15) Past Medical History - General Information source: Patient - Social History Smoking Status: Current Every Day Smoker Chew tobacco use (# tins/day): No Frequency of alcohol use: Rare Drug Abuse: None Occupation: Construction Lives with: Family Family History: Malignancy - liver, lung cancers, Other - multiple MIs under 50yo father, grandfather, uncle Patient has suicidal ideation: No Patient has homicidal ideation: No - Past Medical History Cardiac Medical History: Reports: Hx Atrial Fibrillation - reports diagnosed by EMS in September 2015., Hx Hypertension, Other - reports "heart stopping" in September 2015, presented to ED via EMS, LWBS. Pulmonary Medical History: Reports: Hx Asthma - childhood Neurological Medical History: Reports: Hx Seizures Past Surgical History: Reports: Hx Adenoidectomy, Hx Oral Surgery - reconstructive, Hx Orthopedic Surgery - right hand, Hx Tonsillectomy - Immunizations Immunizations up to date: Yes Hx Diphtheria, Pertussis, Tetanus Vaccination: Yes - unknown Review of Systems - Review of Systems Constitutional: No symptoms reported EENT: No symptoms reported Cardiovascular: See HPI, Syncope Respiratory: No symptoms reported Gastrointestinal: No symptoms reported Genitourinary: No symptoms reported Male Genitourinary: No symptoms reported Musculoskeletal: No symptoms reported Skin: No symptoms reported Hematologic/Lymphatic: No symptoms reported Neurological/Psychological: See HPI, Weakness, Numbness -: Yes All other systems reviewed and negative Physical Exam - Notes Notes: GENERAL: Alert, interacts well. No acute distress. HEAD: Normocephalic, atraumatic. EYES: Pupils equal, round, and reactive to light. Extraocular movements intact. ENT: Oral mucosa moist, tongue midline. NECK: Full range of motion. Supple. Trachea midline. LUNGS: Clear to auscultation bilaterally, no wheezes, rales, or rhonchi. No respiratory distress. HEART: Regular rate and rhythm. No murmurs, gallops, or rubs. ABDOMEN: Soft, non-tender. Non-distended. Bowel sounds present in all 4 quadrants. No guarding, rigidity, or rebound. EXTREMITIES: Moves all 4 extremities spontaneously. No edema, radial and dorsalis pedis pulses 2/4 bilaterally. No cyanosis. NEUROLOGICAL: Alert and oriented x3. Normal speech. PSYCH: Normal affect, normal mood. SKIN: Warm, dry, normal turgor. No rashes or lesions noted. Course - Re-evaluation Re-evalutation: 09/02/18 12:28 Patient is sound asleep at this time. He did receive 25 mg of Benadryl IV, 10 mg Compazine IV, and 50 mg of Toradol IV. His history and exam are most consistent with a complex or complicated type migraine pattern. - Laboratory Result Diagrams: 09/02/18 09:15 09/02/18 09:15 Laboratory results interpreted by me: 09/02/18 09/02/18 09/02/18 09:15 09:15 10:30 WBC 11.8 H Hgb 13.2 L RDW 14.7 H AST 15 L ALT 18 L Urine Urobilinogen 2.0 H - EKG Interpretation by Ks EKG shows normal: Sinus rhythm, [place], Intervals, QRS Complexes, ST-T Waves Rate: Normal - 60 Rhythm: NSR [place]/QRS: RBBB When compared to previous EKG there are: Previous EKG unavailable Discharge - Discharge Clinical Impression: Complicated migraine, Paresthesias, Syncope and collapse Condition: Stable Disposition: HOME, SELF-CARE Additional Instructions: Migraine Headache The physician feels that your symptoms are due to a migraine attack. Migraines are caused by changes in the blood vessels of the head. Arteries go into spasm, often causing warning symptoms that a headache may begin soon. As the spasm goes away, the vessels dilate and throb, causing the pounding pain of a migraine headache. Migraines often cause nausea and vomiting. The treatment of headaches varies with severity and cause of pain. Not all headaches need pain shots -- in fact, there is evidence that using narcotics for headaches may make them worse in the long run. The physician will determine the therapy that's in your best interest for this particular headache. Medications are available that may prevent migraines, or stop them as they first occur. If one medication is not helpful, try another. If migraines are frequent, be patient -- follow the doctor's recommendations. Call the physician if you are worsening, or if new symptoms arise. Syncopal Episode Syncope (fainting or near-fainting) can occur from many different health problems. Or it can be a simple fainting spell requiring no treatment. It is safe for you to go home, but further evaluation will likely be necessary. Your work-up may include tests for internal bleeding, heart disease, medication problems, or near-strokes. Tests are not always required, however, depending on the nature of your problem. The warning signs of an impending faint include: dizziness, lig htheadedness, nausea, hot flashes, tingling, and weakness. If this happens, lay down and put your feet up, then wait until all of these symptoms have passed before standing up again. If these episodes become recurrent, or if you develop chest pain, heart palpitations, mental confusion, blurred vision, or headache, then you should call the physician, or go to the emergency room. The multiple symptoms you describe sound most consistent with a complicated or complex migraine episode. You should rest today. Drink plenty of fluids today. Follow-up with a local primary care provider to further evaluate your headaches and blacking out spells. RETURN TO THE EMERGENCY ROOM IF ANY NEW OR WORSENING SYMPTOMS. Armandibe Attestation: 09/02/18 11:28 I personally performed the services described in the documentation, reviewed and edited the documentation which was dictated to the scribe in my presence, and it accurately records my words and actions. I personally performed the services described in the documentation, reviewed and edited the documentation which was dictated to the scribe in my presence, and it accurately records my words and actions.
[2018-09-02] MEDS ORDERED: KETOROLAC TROMETHAMINE INJ/PF 30 MG/1 ML SDV IV ONE (11:26)
[2018-09-02] MEDS ORDERED: NORMAL SALINE 1000 ML 1,000 ML IV ONE (11:26)
[2018-09-02] MEDS ORDERED: PROCHLORPERAZINE EDISYLATE INJ 10 MG/2 ML VIAL IV ONE (11:26)
[2018-09-02] MEDS ORDERED: DIPHENHYDRAMINE HCL 50 MG/ML VIAL IV ONE (11:26)
[2018-09-02 13:07] VITALS: BP 119/68
--- NOTE | 2018-09-02 19:30 | EKG REPORT ---
SEVERITY:- ABNORMAL ECG - SINUS RHYTHM RIGHT BUNDLE BRANCH BLOCK : Confirmed by: Yomaira Parks MD 02-Sep-2018 19:29:22
== END 2018-09-02 13:05 | disposition home or self-care (01) ==
LOC: ER 09:21
DX: G43.109 Migraine with aura, not intractable, without status migrainosus (principal); R55 Syncope and collapse; R20.2 Paresthesia of skin; R20.0 Anesthesia of skin; R53.1 Weakness; I45.10 Unspecified right bundle-branch block; R10.9 Unspecified abdominal pain; F17.200 Nicotine dependence, unspecified, uncomplicated; I10 Essential (primary) hypertension; Z88.5 Allergy status to narcotic agent; Z88.0 Allergy status to penicillin; Z91.038 Other insect allergy status
CPT/HCPCS: 93005; 99284; 96361; 96374; 96375; 36415; 82553; 82550; 85025; 80053; 81001; 84484; 93010; J1200; J1885; J0780; J7030

== ENCOUNTER 2018-11-09 12:23 | Emergency (ER) | payer SELFPAY ==
[2018-11-09 13:36] LABS: ABSOLUTE LYMPHOCYTES (AUTO) 2.7 10^3/uL (0.5-4.7); ABSOLUTE MONOCYTES (AUTO) 0.7 10^3/uL (0.1-1.4); ABSOLUTE NEUT (AUTO) 6.5 10^3/uL (1.7-8.2); BASOPHILS % (AUTO) 0.3 % (0-2); EOSINOPHILS % (AUTO) 0.5 % (0-6); HEMATOCRIT 40.2 % (37.9-51.0); HEMOGLOBIN 13.5 g/dL (13.5-17.0); MEAN CORPUSCULAR HEMOGLOBIN 28.7 pg (27.0-33.4); MEAN CORPUSCULAR HGB CONC 33.5 g/dL (32.0-36.0); MEAN CORPUSCULAR VOLUME 86 fl (80-97); MONOCYTES % (AUTO) 7.1 % (3-13); PLATELET COUNT 253 10^3/uL (150-450); RED CELL DISTRIBUTION WIDTH 15.3 % (11.5-14.0); SEGMENTED NEUTROPHILS % (AUTO) 65.1 % (42-78); TOTAL CELLS COUNTED % (AUTO) 100 %
--- NOTE | 2018-11-09 13:58 | RADIOLOGY REPORT (SQ) ---
EXAM DESCRIPTION: CT HEAD WITHOUT COMPLETED DATE/TIME: 11/09/2018 1:46 pm REASON FOR STUDY: Headache, pontine hemorrhage 2 days ago. COMPARISON: 11/07/2018 TECHNIQUE: Axial images acquired through the brain without intravenous contrast. Images reviewed wi th bone, brain and subdural windows. Additional sagittal and coronal reconstructions were generated. Images stored on PACS. All CT scanners at this facility use dose modulation, iterative reconstruction, and/or weight based d osing when appropriate to reduce radiation dose to as low as reasonably achievable (ALARA). [facility]: Dose Right [facility]: CareDose [facility]: Dose Right [facility]: Teradose 4D [facility]: Smart LightSquared RADIATION DOSE: CT Rad equipment meets quality standard of care and radiation dose reduction techniq ues were employed. CTDIvol: 53.2 mGy. DLP: 1070 mGy-cm. mGy. LIMITATIONS: None. FINDINGS: VENTRICLES: Normal size and contour. CEREBRUM: Once again a pontine hemorrhage is seen. This is unchanged. Normal chandra/white matter diffe rentiation. No areas of low density in the white matter. CEREBELLUM: No masses. No hemorrhage. No alteration of density. No evidence for acute infarction. EXTRAAXIAL SPACES: No fluid collections. No masses. ORBITS AND GLOBE: No intra- or extraconal masses. Normal contour of globe without masses. CALVARIUM: No fracture. PARANASAL SINUSES: No fluid or mucosal thickening. SOFT TISSUES: No mass or hematoma. OTHER: No other significant finding. IMPRESSION: Subacute left pontine hemorrhage, unchanged. EVIDENCE OF ACUTE STROKE: NO. COMMENT: Quality ID # [id number]: Final reports with documentation of one or more dose reduction techniques (e.g., Automated exposure control, adjustment of the mA and/or kV according to patient size, use of iterative reconstruction technique) TECHNICAL DOCUMENTATION: JOB ID: [id number] [employer]- All Rights Reserved Reading location - IP/workstation name: [email or web address]
[2018-11-09 14:09] LABS: ALBUMIN 4.3 g/dL (3.5-5.0); ALKALINE PHOSPHATASE 59 U/L (38-126); ANION GAP 8 (5-19); ASPARTATE AMINO TRANSFERASE 24 U/L (17-59); BILIRUBIN,DIRECT 0.2 mg/dL (0.0-0.4); BILIRUBIN,TOTAL 0.5 mg/dL (0.2-1.3); BLOOD UREA NITROGEN 14 mg/dL (7-20); CALCIUM 9.8 mg/dL (8.4-10.2); CARBON DIOXIDE 28 mmol/L (22-30); CHLORIDE 103 mmol/L (98-107); GLUCOSE 106 mg/dL (75-110); POTASSIUM 4.8 mmol/L (3.6-5.0); TOTAL PROTEIN 6.8 g/dL (6.3-8.2)
[2018-11-09 14:14] VITALS: BP 111/74
--- NOTE | 2018-11-09 14:20 | ER Document Report ---
ED Headache - General Chief Complaint: Headache Stated Complaint: HEADACHE Time Seen by Provider: 11/09/18 13:15 Notes: Patient is here because he had a headache. Patient was seen just 2 days ago on Wednesday, for a headache and was found to have an 8 mm hemorrhage in his jason. He was awake and alert and asymptomatic at the time when he was seen in the emergency department, but he was transferred by helicopter to [facility]. Patient and family relate that he signed himself out of [facility] that evening and went home. He was fine for the rest of Wednesday and all day yesterday, Wednesday, but today, has redeveloped headache in the frontal region of his head. That headache is gone now, but they contacted the providers at [facility] who recommended he get a CT scan to see if he has had any new bleeding. Of interest, patient has had several syncopal episodes during the past months and some of them have been associated with headaches similar to the ones he has been having during the past week. At this time, however, patient is asymptomatic. Says he has no headache whatsoever. His vision is good. He is moving all 4 extremities without any li mitation. Looks and acts like he feels fine. TRAVEL OUTSIDE OF THE [place] IN LAST 30 DAYS: No - Related Data Allergies/Adverse Reactions: codeine [Codeine] Allergy (Verified 11/07/18 09:03) Penicillins Allergy (Verified 11/07/18 09:03) yellow jackets Allergy (Uncoded 11/07/18 09:03) Past Medical History - Social History Smoking Status: Current Every Day Smoker Frequency of alcohol use: Rare Drug Abuse: Marijuana Family History: Reviewed & Not Pertinent, Malignancy - liver, lung cancers, Other - multiple MIs under 50yo father, grandfather, uncle Patient has suicidal ideation: No Patient has homicidal ideation: No - Past Medical History Cardiac Medical History: Reports: Hx Atrial Fibrillation - reports diagnosed by EMS in September 2015., Hx Heart Attack - left AMA, Hx Hypertension Pulmonary Medical History: Reports: Hx Asthma - childhood Neurological Medical History: Reports: Hx Seizures Infectious Medical History: Denies: Hx Hepatitis Past Surgical History: Reports: Hx Adenoidectomy, Hx Oral Surgery - reconstructive, Hx Orthopedic Surgery - right hand, Hx Tonsillectomy - Immunizations Immunizations up to date: Yes Hx Diphtheria, Pertussis, Tetanus Vaccination: Yes - unknown Review of Systems - Review of Systems Notes: REVIEW OF SYSTEMS: CONSTITUTIONAL : Denies fever. EENT: Denies eye, ear, nose or mouth or throat pain or other symptoms. CARDIOVASCULAR: Denies chest pain. RESPIRATORY: Denies cough, chest congestion, or shortness of breath. GASTROINTESTINAL: Denies abdominal pain or nausea, vomiting, or diarrhea. GENITOURINARY: Denies difficulty or painful urinating, urinary frequency, blood in urine. MUSCULOSKELETAL: Denies back or neck pain. Denies joint pain or swelling. SKIN: Denies rash or skin lesions. NEUROLOGICAL: No deficits. Denies LOC or altered mental status. See HPI regarding headache. Denies sensory loss or motor deficits. ALL OTHER SYSTEMS REVIEWED AND NEGATIVE. Physical Exam - Vital signs Vitals: Temp Pulse Resp BP Pulse Ox 98.2 F 129 H 20 120/70 99 11/09/18 12:33 11/09/18 12:33 11/09/18 12:33 11/09/18 12:33 11/09/18 12:33 Interpretation: No: Febrile Notes: PHYSICAL EXAMINATION: GENERAL: Well-appearing, in no acute distress. Vital signs are all essentially normal except for slight tachycardia in triage. HEAD: Atraumatic, normocephalic. EYES: Pupils equal round and reactive to light, extraocular movements intact. ENT: oropharynx clear without exudates. Moist mucous membranes. NECK: Normal range of motion, supple. LUNGS: Breath sounds clear and equal bilaterally. HEART: Regular rate and rhythm without murmurs. ABDOMEN: Soft, nontender. No guarding or rebound. No masses. BACK: No tenderness throughout entire back. EXTREMITIES: Normal range of motion without pain. NEUROLOGICAL: Normal speech, normal gait. Normal sensory, motor, and reflex exams. Awake, alert, and oriented x3. Cranial nerves normal. PSYCH: Normal mood, normal affect. SKIN: Warm, dry, no rashes. Course - Re-evaluation Re-evalutation: 11/09/18 18:[address] findings with the patient and with his family member who is in the room. Patient says that he was told when he was admitted at [facility] on Wednesday that they were going to keep him for a couple of days and its already been a couple of days and if he does not have any change in his findings on CT, he wants to go home. Frankly, that sounds like a reasonable approach. I am sure that they have some idea after a couple of days of no worsening of findings on CT that the patient's likely to do was well out of the hospital is in the hospital. Patient will be discharged with advised to return if he has recurrent severe headache, or other new symptoms that need to be further evaluated. - Vital Signs Vital signs: Temp Pulse Resp BP Pulse Ox 98.6 F 129 H 20 111/74 100 11/09/18 13:38 11/09/18 12:33 11/09/18 14:01 11/09/18 14:00 11/09/18 14:01 - Laboratory Result Diagrams: 11/09/18 13:11 11/09/18 13:11 Laboratory results interpreted by me: 11/09/18 13:11 RDW 15.3 H - Diagnostic Test Radiology reviewed: Image reviewed, Reports reviewed - CT scan shows no change from scans done a couple of days ago. No additional bleeding noted. Read by radiologist as subacute hemorrhage and no new hemorrhage. Discharge - Discharge Clinical Impression: Headache Condition: Stable Disposition: HOME, SELF-CARE Additional Instructions: HEADACHE: The physician does not feel that the headache you are experiencing has a serious underlying cause. Most headaches are due to emotional stress, with resultant muscle tension (tension headache). Occasionally, headaches are secondary to changes in the blood vessels of the scalp (vascular headache and migraine headache). Sometimes, a headache is the first symptom of another developing illness, such as a viral infection. You have no evidence of stroke, bleeding, meningitis, or other serious cause of your headache. The treatment of headaches varies with the severity and cause of the pain. Not all headaches need pain shots. In fact, there is evidence that using narcotics for headaches may make them worse in the long run. The physician will determine the therapy that's in your best interest. If you develop a fever, if the headache is different from any you've previously experienced, or if the headache progressively worsens, then call your physician at once or go to the emergency room. USE OF ACETAMINOPHEN (Tylenol): Acetaminophen may be taken for pain relief or fever control. It's much safer than aspirin, offering a wider range of "safe" dosages. It is safe during . Some brand names are Tylenol, Panadol, Datril, Anacin 3, Tempra, and Liquiprin. Acetaminophen can be repeated every four hours. The following are maximum recommended dosages: WEIGHT Dose Drops Elixir Chewable(80mg) (LBS.) drprs=droppers tsp=teaspoon >89 pounds or adults 650 mg to 900 mg Acetaminophen can be repeated every four hours. Maximum dose not to exceed 4000 mg a day. These maximum recommended dosages are slightly higher than the dosages written on the product container, but these dosages are very safe and below the toxic dosage for acetaminophen. FOLLOW-UP CARE: If you have been referred to a physician for follow-up care, call the physicians office for an appointment as you were instructed or within the next two days. If you experience worsening or a significant change in your symptoms, notify the physician immediately or return to the Emergency Department at any time for re-evaluation. At this time, there is no evidence of any further bleeding from your hemorrhage in your brain. Within the limits of a CT scanner, we do not see any new blood present. Return if you have a severe headache, passing out or seizures, inability to coordinate and stand and walk, or any other symptoms are concerning for possible rebleeding in your brain. Forms: Return to Work
== END 2018-11-09 14:30 | disposition home or self-care (01) ==
LOC: ER 12:23
DX: R51 Headache (principal); Z88.6 Allergy status to analgesic agent; Z88.0 Allergy status to penicillin; I25.2 Old myocardial infarction
CPT/HCPCS: 36415; 70450; 80053; 85025; 99284

== ENCOUNTER 2019-02-20 10:40 | Emergency (ER) | payer SELFPAY ==
[2019-02-20 11:30] LABS: ABSOLUTE BASOPHILS # (AUTO) 0.1 10^3/uL (0.0-0.2); ABSOLUTE LYMPHOCYTES (AUTO) 2.3 10^3/uL (0.5-4.7); ABSOLUTE MONOCYTES (AUTO) 0.8 10^3/uL (0.1-1.4); ABSOLUTE NEUT (AUTO) 6.3 10^3/uL (1.7-8.2); BASOPHILS % (AUTO) 0.5 % (0-2); EOSINOPHILS % (AUTO) 0.2 % (0-6); HEMATOCRIT 43.7 % (37.9-51.0); HEMOGLOBIN 14.9 g/dL (13.5-17.0); LYMPHOCYTES % (AUTO) 24.5 % (13-45); MEAN CORPUSCULAR HEMOGLOBIN 29.6 pg (27.0-33.4); MEAN CORPUSCULAR HGB CONC 34.1 g/dL (32.0-36.0); MEAN CORPUSCULAR VOLUME 87 fl (80-97); MONOCYTES % (AUTO) 8.2 % (3-13); PLATELET COUNT 276 10^3/uL (150-450); RED BLOOD COUNT 5.02 10^6/uL (4.35-5.55); RED CELL DISTRIBUTION WIDTH 14.1 % (11.5-14.0); SEGMENTED NEUTROPHILS % (AUTO) 66.6 % (42-78); TOTAL CELLS COUNTED % (AUTO) 100 %; WHITE BLOOD COUNT 9.4 10^3/uL (4.0-10.5)
[2019-02-20 11:51] LABS: ALBUMIN 4.6 g/dL (3.5-5.0); ALKALINE PHOSPHATASE 71 U/L (38-126); ANION GAP 9 (5-19); ASPARTATE AMINO TRANSFERASE 24 U/L (17-59); BILIRUBIN,DIRECT 0.1 mg/dL (0.0-0.4); BILIRUBIN,TOTAL 0.7 mg/dL (0.2-1.3); BLOOD UREA NITROGEN 11 mg/dL (7-20); CALCIUM 10.4 mg/dL (8.4-10.2); CARBON DIOXIDE 31 mmol/L (22-30); CHLORIDE 99 mmol/L (98-107); CREATINE KINASE 73 U/L (55-170); GLUCOSE 91 mg/dL (75-110); POTASSIUM 4.7 mmol/L (3.6-5.0); TOTAL PROTEIN 7.6 g/dL (6.3-8.2)
[2019-02-20 12:03] LABS: CREATINE KINASE MB 1.58 ng/mL (<4.55); TROPONIN I < 0.012 ng/mL
== END 2019-02-20 11:10 | disposition left against medical advice (07) ==
LOC: ER 10:40
DX: Z53.21 Procedure and treatment not carried out due to patient leaving prior to being seen by health care provider (principal)
CPT/HCPCS: 36415; 80053; 82550; 82553; 84484; 85025

== ENCOUNTER 2019-08-29 13:01 | Emergency (ER) | payer SELFPAY ==
[2019-08-29] MEDS ORDERED: OXYCODONE-ACETAMINOPHEN 5-325 MG TABLET PO ONE (13:21)
[2019-08-29] MEDS ORDERED: CYCLOBENZAPRINE HCL 10 MG TABLET PO ONE (13:21)
--- NOTE | 2019-08-29 13:25 | ER Document Report ---
ED Neck/Back Problem - General Chief Complaint: Back Pain Stated Complaint: BACK PAIN Time Seen by Provider: 08/29/19 13:17 Primary Care Provider: [facility] [Provider Group] - Follow up as needed Mode of Arrival: Wheelchair Information source: Patient Notes: 44-year-old male presented to ED for complaint of pain to the right hip thigh and low back. He states he was working on a lawn tractor when it fell. He states he caught the long tract before it hit his leg but he has severe pain to the right thigh hip and low back. He states he heard a loud popping sound. He does have a history of a stroke brain bleed hand surgery for spider bite seizures high blood pressure and CO. He does smoke a pack a day does not drink or do any drugs. Patient is alert oriented respirations regular and unlabored speaking in full sentences. TRAVEL OUTSIDE OF THE [place] IN LAST 30 DAYS: No - HPI Patient complains to provider of: Pain, Injury, Lower back - Right hip and thigh Onset: Just prior to arrival Where: Work Onset: Sudden Timing: Still present Quality of pain: Achy, Burning, Sharp, Throbbing Severity: Severe Pain Level: 5 Context: Other Recent injury: Yes - Lawn tractor fell on him Associated symptoms: Radiation to leg, Lower back pain. denies: Motor loss, Numbness/tingling, Radiation to arm, Radiation to chest, Sensory loss Exacerbated by: Movement of trunk, Sitting position Relieved by: Nothing Similar symptoms previously: Yes Recently seen / treated by doctor: No - Related Data Allergies/Adverse Reactions: codeine [Codeine] Allergy (Verified 08/29/19 14:44) Penicillins Allergy (Verified 08/29/19 14:44) yellow jackets Allergy (Uncoded 08/29/19 14:44) Past Medical History - General Information source: Patient - Social History Smoking Status: Current Every Day Smoker Cigarette use (# per day): Yes - ppd Frequency of alcohol use: None Drug Abuse: None Lives with: Family Family History: Reviewed & Not Pertinent, Malignancy - liver, lung cancers, Other - multiple MIs under 50yo father, grandfather, uncle Patient has suicidal ideation: No Patient has homicidal ideation: No - Past Medical History Cardiac Medical History: Reports: Hx Atrial Fibrillation - reports diagnosed by EMS in September 2015., Hx Heart Attack - left AMA, Hx Hypertension Pulmonary Medical History: Reports: Hx Asthma - childhood EENT Medical History: Reports: None Neurological Medical History: Reports: Hx Seizures, Other - Brain bleed Endocrine Medical History: Reports: None Renal/ Medical History: Reports: None Malignancy Medical History: Reports None GI Medical History: Reports: None Musculoskeletal Medical History: Reports Hx Musculoskeletal Deformity, Reports Hx Musculoskeletal Trauma Skin Medical History: Reports None Psychiatric Medical History: Reports: None Traumatic Medical History: Reports: None Infectious Medical History: Reports: None Past Surgical History: Reports: Hx Adenoidectomy, Hx Oral Surgery - reconstructive, Hx Orthopedic Surgery - right hand, Hx Tonsillectomy - Immunizations Immunizations up to date: Yes Hx Diphtheria, Pertussis, Tetanus Vaccination: Yes - unknown Review of Systems - Review of Systems Constitutional: No symptoms reported EENT: No symptoms reported Cardiovascular: No symptoms reported Respiratory: No symptoms reported Gastrointestinal: No symptoms reported Genitourinary: No symptoms reported Male Genitourinary: No symptoms reported Musculoskeletal: Back pain, Joint pain, Joint swelling, Muscle pain Skin: No symptoms reported Hematologic/Lymphatic: No symptoms reported Neurological/Psychological: No symptoms reported -: Yes All other systems reviewed and negative Physical Exam - Vital signs Vitals: Temp Pulse Resp BP Pulse Ox 98.4 F 72 16 119/69 98 08/29/19 13:05 08/29/19 13:05 08/29/19 13:05 08/29/19 13:05 08/29/19 13:05 Interpretation: Normal - General General appearance: Appears well, Alert - HEENT Head: Normocephalic, Atraumatic Eyes: Normal Pupils: PERRL - Respiratory Respiratory status: No respiratory distress Chest status: Nontender Breath sounds: Normal Chest palpation: Normal - Cardiovascular Rhythm: Regular Heart sounds: Normal auscultation Murmur: No - Abdominal Inspection: Normal Distension: No distension Bowel sounds: Normal Tenderness: Nontender Organomegaly: No organomegaly - Back Back: Normal, Tender, Vertebra tenderness. No: Deformity/step-off, CVA tenderness, Scars, Scoliosis, Wounds Notes: No signs or symptoms of cauda equina. He states he was working on a lawn tractor when it fell he caught with his hands before fell on his thigh felt like he felt a pop he then had severe pain in his right thigh and his right flank and low back. No loss control of bowel bladder no loss of can control or sensation to the lower extremities and no saddle anesthesia. - Extremities General upper extremity: Normal inspection, Nontender, Normal color, Normal ROM, Normal temperature General lower extremity: Normal inspection, Nontender, Normal color, Normal ROM, Normal temperature, Normal weight bearing. No: Kadeem's sign - Neurological Neuro grossly intact: Yes Cognition: Normal Orientation: AAOx4 [place] Coma Scale Eye Opening: Spontaneous Reyna Coma Scale Verbal: Oriented [place] Coma Scale Motor: Obeys Commands [place] Coma Scale Total: 15 Speech: Normal Motor strength normal: LUE, RUE, LLE, RLE Sensory: Normal - Psychological Associated symptoms: Normal affect, Normal mood - Skin Skin Temperature: Warm Skin Moisture: Dry Skin Color: Normal Course - Re-evaluation Re-evalutation: 08/29/19 17:32 No acute abnormalities noted on x-rays. Patient was given the results written report of x-rays and x-ray results were discussed with patient. Patient was instructed please follow-up with his primary care and/or orthopedics or back specialist if he continued to have pain. Patient was treated with 1 Percocet in the emergency room and sent home with a prescription for muscle relaxers. Patient was able to verbalize understanding and agreement with treatment plan. - Vital Signs Vital signs: Temp Pulse Resp BP Pulse Ox 97.8 F 70 18 131/87 H 97 08/29/19 15:06 08/29/19 15:06 08/29/19 15:06 08/29/19 15:06 08/29/19 15:06 - Diagnostic Test Radiology reviewed: Image reviewed, Reports reviewed Discharge - Discharge Clinical Impression: Right hip pain Back pain Qualifiers: Back pain location: low back pain Chronicity: acute Back pain laterality: right Sciatica presence: without sciatica Qualified Code(s): M54.5 - Low back pain Contusion of right thigh Qualifiers: Encounter type: initial encounter Qualified Code(s): S70.11XA - Contusion of right thigh, initial encounter Condition: Stable Disposition: HOME, SELF-CARE Additional Instructions: MUSCLE STRAIN: You have strained a muscle -- torn the fibers within the muscle. This often occurs with strenuous exertion, or during an injury that suddenly stretches the muscle. The seriousness of a strain varies. Some strains heal within days, others cause problems for months. X-rays cannot show a muscle strain. X-rays are taken only if symptoms suggest that a fracture could be present. The usual treatment of a muscle strain is rest and ice packs. Sometimes, a sling, splint, or crutches may be necessary to rest the muscle. The muscle can be used again once pain subsides. Severe strains require a special exercise and stretching program to prevent permanent stiffness and disability. Your doctor will advise you if this will be necessary. Call the doctor immediately if pain or swelling becomes severe, or if numbness or discoloration develop. CONTUSION: Your injury has resulted in a contusion -- a crushing of the deep tissues. No injury to important structures was detected during the physician's exam. Contusions vary in the amount of pain they cause, and in the length of time required for healing. Typically, the area will become bruised, and will remain painful to touch for two or three weeks. However, most patients are back to working and playing within a few days. After the initial period of rest and cold-packs, your symptoms (together with the doctor's recommendations) will determine how rapidly you can get back to full activity. Usually this means "do what feels okay, but don't do things that hurt." If re-examination was recommended, it's important to follow up as instructed. Call the doctor or return any time if pain increases, if swelling becomes severe, if you develop numbness or weakness in an injured extremity, or if any other alarming symptoms occur. LOW BACK PAIN: Three out of every four people will have an episode of disabling back pain during their lifetime. Most commonly the pain is due to straining of the muscles and ligaments in the low back. Usual treatment includes: (1) Rest on a firm surface. Avoid lying on your stomach. (2) Ice pack the painful area. After a few days, gentle heat may be used intermittently to relax the area, or ice packs can be continued. (3) Medication may be needed -- muscle relaxers and antiinflammatory medicines are commonly used. (4) As the back improves, exercises are prescribed to strengthen the back and abdominal muscles. Your doctor will advise you on the proper care for your back at each stage in your recovery. You may be better in a few days -- or healing may take several weeks. If new symptoms of a "herniated disc" (radiation of pain, numbness, or tingling down the back of the leg or weakness in the leg) occur, you should be re-examined. Further testing may be necessary. USE OF TYLENOL (ACETAMINOPHEN): Acetaminophen may be taken for pain relief or fever control. It's much safer than aspirin, offering a wider range of "safe" dosages. It is safe during . Some brand names are Tylenol, Panadol, Datril, Anacin 3, Tempra, and Liquiprin. Acetaminophen can be repeated every four hours. The following are maximum recommended dosages: WEIGHT Dose Drops Elixir Chewable(80mg) (LBS.) drprs=droppers tsp=teaspoon 6 40 mg 0.4 ml (1/2) 6-11 80 mg 0.8 ml (full) tsp 1 tab 12-16 120 mg 1 1/2 drprs 3/4 tsp 1 1/2 tabs 17-23 160 mg 2 drprs 1 tsp 2 tabs 24-30 240 mg 3 drprs 1 1/2 tsp 3 tabs 30-35 320 mg 2 tsp 4 tabs 36-41 360 mg 2 1/4 tsp 4 1/2 tabs 42-47 400 mg 2 1/2 tsp 5 tabs 48-53 480 mg 3 tsp 6 tabs 54-59 520 mg 3 1/4 tsp 6 1/2 tabs 60-64 560 mg 3 1/2 tsp 7 tabs 65-70 600 mg 3 3/4 tsp 7 1/2 tabs 71-76 640 mg 4 tsp 8 tabs 77-82 720 mg 4 1/2 tsp 9 tabs 83-88 800 mg 5 tsp 10 tabs >89 pounds or adults 650 mg to 900 mg Acetaminophen can be repeated every four hours. Maximum dose not to exceed 4000 mg a day. These maximum recommended dosages are slightly higher than the dosages written on the product container, but these dosages are very safe and below the toxic dosage for acetaminophen. ICE PACKS: Apply ice packs frequently against the painful area. Many different schedules are recommended, such as "20 minutes on, 20 minutes off" or "one hour ice, two hours rest." If you need to work, you may need to go longer between ice treatments. You should plan to have the area ice packed AT LEAST one fourth of the time. The ice should be applied over the wrap, tape, or splint, or over a layer of cloth -- not directly against the skin. Some ice bags have a built-in cloth and can be put directly on the skin. WARM PACKS: After approximately two days, apply gentle heat (such as a heating pad or hot water bottle) for about 20 to 30 minutes about every two hours -- at least four times daily. Warmth and elevation will help you make a more rapid recovery, and will ease the pain considerably. Do not use HOT heat, and never apply heat for longer than 30 minutes. The continuous heat can invisibly damage skin and muscles -- even when no burn is seen on the surface. Damaged muscles can make you MORE sore. MUSCLE RELAXERS: Muscle relaxing medications are usually prescribed for acute muscle spasm or injury to the neck and back. They are often combined with antiinflammatory pain medication for increased relief. You may stop the muscle relaxer when the pain and stiffness have improved. Start the medication again if spasms recur. Muscle relaxers may cause drowsiness, especially with the first dose. Do not operate machinery or drive while under the effects of the medication. Most muscle relaxers last up to 24 hours. Do not combine the medication with alcohol. ORAL NARCOTIC MEDICATION: You have been given a Percocet for pain control. This medication is a narcotic. It's best taken with food, as nausea can result if taken on an empty stomach. Don't operate machinery or drive within six hours of taking this medication. Do not combine this medicine with alcohol, or with any medication which can cause sedation (such as cold tablets or sleeping pills) unless you get permission from the physician. Narcotics tend to cause constipation. If possible, drink plenty of fluids and eat a diet high in fiber and fruits. Ibuprofen Ibuprofen is an excellent, safe drug for pain control. In addition, it has potent antiinflammatory effects which are beneficial, especially in the treatment of injuries, arthritis, or tendonitis. It's best to take ibuprofen with food. Persons with ulcer disease or allergy to aspirin should notify their physician of this before taking ibuprofen. Take the medication exactly as prescribed. Don't take additional doses unless instructed to do so by your doctor. If you develop wheezing, shortness of breath, hives, faintness, stomach pain, vomiting, or dark black stools, return for re-evaluation at once. FOLLOW-UP CARE: If you have been referred to a physician for follow-up care, call the physicians office for an appointment as you were instructed or within the next two days. If you experience worsening or a significant change in your symptoms, notify the physician immediately or return to the Emergency Department at any time for re-evaluation. Prescriptions: Methocarbamol [Robaxin 500 mg Tablet] 500 mg PO BIDP PRN #14 tablet PRN Reason: Forms: Elevated Blood Pressure, Smoking Cessation Education Referrals: [facility] ([facility]) [Provider Group] - Follow up as needed
--- NOTE | 2019-08-29 14:18 | RADIOLOGY REPORT (SQ) ---
EXAM DESCRIPTION: FEMUR RIGHT IMAGES COMPLETED DATE/TIME: 08/29/2019 2:05 pm REASON FOR STUDY: Lawn tractor fell pain femur hip back COMPARISON: None. NUMBER OF VIEWS: Two views. TECHNIQUE: Two radiographic images acquired of the right femur to include hip and knee in at least o ne projection. LIMITATIONS: None. FINDINGS: MINERALIZATION: Normal. BONES: No acute fracture, osseous lesion or periosteal reaction. SOFT TISSUES: No soft tissue swelling or radiopaque foreign body. OTHER: No other finding. IMPRESSION: No acute osseous abnormality of the right femur. TECHNICAL DOCUMENTATION: JOB ID: [id number] 2010 [employer]- All Rights Reserved Reading location - IP/workstation name: [email or web address]
--- NOTE | 2019-08-29 14:20 | RADIOLOGY REPORT (SQ) ---
EXAM DESCRIPTION: HIP RIGHT AP/LATERAL IMAGES COMPLETED DATE/TIME: 08/29/2019 2:05 pm REASON FOR STUDY: Lawn tractor fell pain femur hip back COMPARISON: None. NUMBER OF VIEWS: Two views. TECHNIQUE: AP pelvis and additional frog-leg view of the right hip. LIMITATIONS: None. FINDINGS: MINERALIZATION: Normal. RIGHT HIP: No fracture or dislocation. LEFT HIP: No fracture or dislocation. PUBIS AND ISCHIUM: The ilioischial and iliopectineal lines are intact. There is no diastasis of the pubic symphysis. PELVIS: No fracture. SACRUM: Intact. LOWER LUMBAR SPINE: No abnormality. SOFT TISSUES: No findings. OTHER: No other finding. IMPRESSION: No acute osseous abnormality of the pelvis or right hip. TECHNICAL DOCUMENTATION: JOB ID: [id number] 2010 [employer]- All Rights Reserved Reading location - IP/workstation name: [email or web address]
--- NOTE | 2019-08-29 14:22 | RADIOLOGY REPORT (SQ) ---
EXAM DESCRIPTION: L SPINE WHOLE IMAGES COMPLETED DATE/TIME: 08/29/2019 2:05 pm REASON FOR STUDY: Lawn tractor fell pain femur hip back COMPARISON: 04/08/2015. NUMBER OF VIEWS: Five views including obliques. TECHNIQUE: AP, lateral, oblique, and sacral radiographic images acquired of the lumbar spine. LIMITATIONS: None. FINDINGS: MINERALIZATION: Normal. SEGMENTATION: There are 5 lumbar-type vertebral bodies. ALIGNMENT: No scoliotic curvature or spondylolisthesis. VERTEBRAE: Intact. There is no fracture. DISCS: The intervertebral disc spaces are preserved. POSTERIOR ELEMENTS: Intact. No pars interarticularis defect. HARDWARE: None in the spine. PARASPINAL SOFT TISSUES: No abnormality. PELVIS: Intact. OTHER: No other finding. IMPRESSION: No acute osseous abnormality of the lumbar spine. TECHNICAL DOCUMENTATION: JOB ID: [id number] 2010 [employer]- All Rights Reserved Reading location - IP/workstation name: [email or web address]
[2019-08-29 15:07] VITALS: BP 131/87
== END 2019-08-29 15:12 | disposition home or self-care (01) ==
LOC: ER 13:01
DX: S70.11XA Contusion of right thigh, initial encounter (principal); M25.551 Pain in right hip; M54.5 Low back pain; M54.9 Dorsalgia, unspecified; M79.651 Pain in right thigh; R10.9 Unspecified abdominal pain; W22.8XXA Striking against or struck by other objects, initial encounter; F17.210 Nicotine dependence, cigarettes, uncomplicated; I10 Essential (primary) hypertension; J45.909 Unspecified asthma, uncomplicated; Z88.0 Allergy status to penicillin; Z88.8 Allergy status to other drugs, medicaments and biological substances
CPT/HCPCS: 72110; 99283

== ENCOUNTER 2020-02-09 13:02 | Emergency (ER) | payer SELFPAY ==
[2020-02-09 13:09] VITALS: BP 108/80
--- NOTE | 2020-02-09 13:20 | ER Document Report ---
ED Extremity Problem, Upper - General Chief Complaint: Shoulder Pain Stated Complaint: LEFT SHOULDER BLADE PAIN Time Seen by Provider: 02/09/20 13:15 Primary Care Provider: [facility] [Provider Group] - Follow up as needed Mode of Arrival: Wheelchair Information source: Patient Notes: 44-year-old male presented to ED for complaint of pain to the left scapular area. He states it has been hurting for a long time. He states is intermittent. He states he has not fallen recently he states it hurts worse when he is up walking around and he was out walking around looking for a job when he started hurting this time. He states that this time it is a stabbing pain. States he is not taking any medications for the pain today. We will get an x-ray give him a Tylenol and sling and reevaluate after we get the x-rays return. I have discussed with him that we have no injuries noted on the scapular x-rays we will probably have him follow-up with orthopedics and give him some exercises. I have suggested if the x-rays are negative use Tylenol ice packs warm packs exercise and follow-up with orthopedics. Constitutional: Negative for fever. HENT: Negative for sore throat. Eyes: Negative for visual changes. Cardiovascular: Negative for chest pain. Respiratory: Negative for shortness of breath. Gastrointestinal: Negative for abdominal pain, vomiting or diarrhea. Genitourinary: Negative for dysuria. Musculoskeletal: Lanes of pain to the left scapular and pain with any movement to the left shoulder Skin: Negative for rash. Neurological: Negative for headaches, weakness or numbness. 10 point ROS negative except as marked above and in HPI. PHYSICAL EXAMINATION: GENERAL: Well-appearing, well-nourished and in no acute distress. HEAD: Atraumatic, normocephalic. EYES: Pupils equal round extraocular movements intact, conjunctiva are normal. ENT: Nares patent NECK: Normal range of motion LUNGS: No respiratory distress Musculoskeletal: Normal range of motion pain with movement, no tenderness to palpation NEUROLOGICAL: Normal speech, normal gait. PSYCH: Normal mood, normal affect. SKIN: Warm, Dry, normal turgor, no rashes or lesions noted.. TRAVEL OUTSIDE OF THE [place] IN LAST 30 DAYS: No - HPI Patient complains to provider of: Pain, Other - Left scapula Onset: Other - Chronic Recent injury: No Quality of pain: Sharp, Stabbing Severity of pain: Moderate Pain Level: 2 Associated symptoms: None Exacerbated by: Movement, Exertion Relieved by: Nothing Similar symptoms previously: Yes Recently seen / treated by doctor: Yes - Related Data Allergies/Adverse Reactions: codeine [Codeine] Allergy (Verified 08/29/19 14:44) Penicillins Allergy (Verified 08/29/19 14:44) yellow jackets Allergy (Uncoded 08/29/19 14:44) Past Medical History - General Information source: Patient - Social History Smoking Status: Current Every Day Smoker Cigarette use (# per day): Yes - 15-16 cigarettes a day Smoking Education Provided: Yes - 2 min Frequency of alcohol use: None Drug Abuse: None Lives with: Spouse/Significant other Family History: Reviewed & Not Pertinent, Malignancy - liver, lung cancers, Other - multiple MIs under 50yo father, grandfather, uncle - Past Medical History Cardiac Medical History: Reports: Hx Atrial Fibrillation - reports diagnosed by EMS in September 2015., Hx Heart Attack, Hx Hypertension Pulmonary Medical History: Reports: Hx Asthma - childhood EENT Medical History: Reports: None Neurological Medical History: Reports: Hx Cerebrovascular Accident, Hx Seizures Endocrine Medical History: Reports: None Renal/ Medical History: Reports: None Malignancy Medical History: Reports None GI Medical History: Reports: None Musculoskeletal Medical History: Reports Hx Musculoskeletal Deformity, Reports Hx Musculoskeletal Trauma Skin Medical History: Reports None Psychiatric Medical History: Reports: None Traumatic Medical History: Reports: Hx Fractures - Legs hands fingers and toes Past Surgical History: Reports: Hx Adenoidectomy, Hx Oral Surgery - reconstructive, Hx Orthopedic Surgery - right hand, Hx Tonsillectomy - Immunizations Immunizations up to date: Yes Hx Diphtheria, Pertussis, Tetanus Vaccination: Yes - unknown Physical Exam - Vital signs Vitals: Temp Pulse Resp BP Pulse Ox 98.5 F 109 H 16 108/80 97 02/09/20 13:07 02/09/20 13:07 02/09/20 13:07 02/09/20 13:07 02/09/20 13:07 Course - Re-evaluation Re-evalutation: 02/09/20 15:06 X-ray discussed with patient written report of x-ray given to patient. Patient was instructed to use salt Tylenol ice packs, warm packs, shoulder exercises, and use of sling. Patient was instructed to follow-up with orthopedics as soon as possible. - Vital Signs Vital signs: Temp Pulse Resp BP Pulse Ox 98.5 F 109 H 16 108/80 97 02/09/20 13:07 02/09/20 13:07 02/09/20 13:07 02/09/20 13:07 02/09/20 13:07 - Diagnostic Test Radiology reviewed: Image reviewed, Reports reviewed Procedures - Immobilization Left Shoulder Time completed: 14:20 Immobilizer type: Sling Performed by: PCT Post-Proc Neuro Vasc Exam: Normal Alignment checked and good: Yes Discharge - Discharge Clinical Impression: Pain of left scapula Condition: Stable Disposition: HOME, SELF-CARE Additional Instructions: He was seen today for left scapular pain. X-rays did not show any acute injuries to this area. You do have full range of motion but with pain to this area. I have treated you with some Tylenol and a sling. Please use the sling if your pain is increasing otherwise history of frozen shoulder. Exercise Program for the Shoulder Since the shoulder moves in so many directions, the joint attachment is weak. Muscles provide most of the stability to the shoulder. You must exercise your shoulder to prevent painful instability or stiffening. PASSIVE - These may be begun within a few days of the injury. While standing, lean forward, allowing the arm to hang down towards the floor. Move the arm in small circles while slowly twisting your chest towards and away from the hanging arm. Do this for one minute. ACTIVE - These may be performed when the doctor gives permission. Begin with the arms at the sides. Raise the arms forward (shoulder's width apart) until they reach shoulder level. Then slowly swing both arms back until they are aiming straight out away from each other. Then bring them forward again, and finally, lower them to your sides. Repeat 20 to 30 times. As you improve, put weights in your hands for the exercise. Start with one pound, and work up to 10 pounds. Never use more than is comfortable. Athletes may work up to 30 pounds. FOLLOW-UP CARE: If you have been referred to a physician for follow-up care, call the physicians office for an appointment as you were instructed or within the next two days. If you experience worsening or a significant change in your symptoms, notify the physician immediately or return to the Emergency Department at any time for re-evaluation. Forms: Smoking Cessation Education Referrals: [facility] ([facility]) [Provider Group] - Follow up as needed
[2020-02-09] MEDS ORDERED: ACETAMINOPHEN 325 MG TABLET PO ONE (13:23)
--- NOTE | 2020-02-09 14:04 | RADIOLOGY REPORT (SQ) ---
EXAM DESCRIPTION: SCAPULA LEFT IMAGES COMPLETED DATE/TIME: 02/09/2020 1:38 pm REASON FOR STUDY: Pain COMPARISON: None. NUMBER OF VIEWS: Two views. TECHNIQUE: Frontal and transscapular view. LIMITATIONS: None. FINDINGS: MINERALIZATION: Normal. BONES: No acute fracture . No worrisome bone lesions. No significant osteophytes. SOFT TISSUES: No calcifications. VISUALIZED RIBS, SPINE, AND LUNG: No other significant finding. OTHER: No other significant finding. IMPRESSION: NEGATIVE STUDY OF THE LEFT SHOULDER. NO RADIOGRAPHIC EVIDENCE OF ACUTE INJURY. NO EXPLAN ATION FOR PAIN. TECHNICAL DOCUMENTATION: JOB ID: [id number] [employer]- All Rights Reserved Reading location - IP/workstation name: [email or web address]
== END 2020-02-09 15:21 | disposition home or self-care (01) ==
LOC: ER 13:02
DX: M25.512 Pain in left shoulder (principal); F17.210 Nicotine dependence, cigarettes, uncomplicated; Z88.0 Allergy status to penicillin; Z88.6 Allergy status to analgesic agent
CPT/HCPCS: 99283

== ENCOUNTER 2020-04-22 08:27 | Emergency (ER) | payer SELFPAY ==
[2020-04-22] MEDS ORDERED: HYDROCODONE/ACETAMINOPHEN 5-325 MG TABLET PO ONE (10:22)
[2020-04-22] MEDS ORDERED: KETOROLAC TROMETHAMINE 60 MG/2 ML SDV IM ONE (10:22)
[2020-04-22] MEDS ORDERED: PREDNISONE 20 MG TABLET PO ONE (10:22)
--- NOTE | 2020-04-22 10:40 | ER Document Report ---
ED Neck/Back Problem - General Chief Complaint: Back Pain Stated Complaint: BACK PAIN Time Seen by Provider: 04/22/20 10:18 Notes: CHIEF COMPLAINT: Back pain and leg numbness HPI: 45-year-old male presenting for 1 day of pain in the right lower back with some numbness and tingling radiating down the right leg to the foot. Has had sciatic issues before normally in the left leg. No incontinence of urine or bowel. Took 1 Advil yesterday for the pain without resolution so came to the emergency department. ROS: See HPI - all other systems were reviewed and are otherwise negative Constitutional: no fever GI: no vomiting, no diarrhea, no abdominal pain : no dysuria Integumentary: no rash Allergy: no hives Musculoskeletal: + extremity pain, positive back pain Neurological: Positive numbness/tingling, no weakness MEDICATIONS: I agree with the patient medications as charted by the RN. ALLERGIES: I agree with the allergies as charted by the RN. PAST MEDICAL HISTORY/PAST SURGICAL HISTORY: Reviewed and agree as charted by RN. SOCIAL HISTORY: Reviewed and agree as charted by RN. FAMILY HISTORY: No significant familial comorbid conditions directly related to patient complaint EXAM: Reviewed vital signs as charted by RN. CONSTITUTIONAL: Alert and oriented and responds appropriately to questions. Well-appearing; well-nourished HEAD: Normocephalic; atraumatic EYES: Conjunctivae clear, sclerae non-icteric ENT: normal nose; no rhinorrhea; moist mucous membranes NECK: Supple without meningismus CARD: symmetric distal pulses RESP: Normal chest excursion without splinting or tachypnea ABD/GI: Normal bowel sounds; non-distended; soft, non-tender, no rebound, no guarding; no palpable organomegaly or masses. BACK: The back appears normal and is mildly tender in the right lower lumbar musculature into the upper gluteal region, there is no CVA tenderness EXT: Normal ROM in all joints; non-tender to palpation; no cyanosis, no effusions, no edema SKIN: Normal color for age and race; warm; dry; good turgor; no acute lesions noted NEURO: Moves all extremities equally; Motor and sensory function intact. Strength equal 5/5 bilateral lower extremities. Sensation intact and equal bilateral lower extremities. Straight leg raise is negative. No saddle anesthesia on exam. DTRs 2+ intact and equal bilateral lower extremities. PSYCH: The patient's mood and manner are appropriate. Grooming and personal hygiene are appropriate. MDM: 45-year-old male presenting with sciatic symptoms. Will treat patient's pain, refer to orthopedics for further management he has had sciatic issues previously. He has no incontinence of urine or other neurologic changes suggesting cauda equina or need for emergent imaging at this time TRAVEL OUTSIDE OF THE [place] IN LAST 30 DAYS: No - Related Data Allergies/Adverse Reactions: codeine [Codeine] Allergy (Verified 08/29/19 14:44) Penicillins Allergy (Verified 08/29/19 14:44) yellow jackets Allergy (Uncoded 08/29/19 14:44) Past Medical History - Social History Smoking Status: Current Every Day Smoker Family History: Reviewed & Not Pertinent, Malignancy - liver, lung cancers, Other - multiple MIs under 50yo father, grandfather, uncle - Past Medical History Cardiac Medical History: Reports: Hx Atrial Fibrillation - reports diagnosed by EMS in September 2015., Hx Heart Attack, Hx Hypertension Pulmonary Medical History: Reports: Hx Asthma - childhood Neurological Medical History: Reports: Hx Cerebrovascular Accident, Hx Seizures Renal/ Medical History: Denies: Hx Peritoneal Dialysis GI Medical History: Denies: Hx Cirrhosis, Hx Gastritis, Hx Gastroesophageal Reflux Disease, Hx Hepatitis, Hx Hiatal Hernia, Hx Irritable Bowel, Hx Ulcer Musculoskeletal Medical History: Reports Hx Musculoskeletal Deformity, Reports Hx Musculoskeletal Trauma Traumatic Medical History: Reports: Hx Fractures - Legs hands fingers and toes Infectious Medical History: Denies: Hx Hepatitis Past Surgical History: Reports: Hx Adenoidectomy, Hx Oral Surgery - reconstructive, Hx Orthopedic Surgery - right hand, Hx Tonsillectomy. Denies: Hx Cardiac Catheterization, Hx Cardiac Surgery, Hx Cholecystectomy - Immunizations Immunizations up to date: Yes Hx Diphtheria, Pertussis, Tetanus Vaccination: Yes - unknown Physical Exam - Vital signs Vitals: Temp Pulse Resp BP Pulse Ox 98.4 F 84 21 H 125/65 100 04/22/20 09:16 04/22/20 09:16 04/22/20 09:16 04/22/20 09:16 04/22/20 09:16 Course - Vital Signs Vital signs: Temp Pulse Resp BP Pulse Ox 98.2 F 88 18 116/64 100 04/22/20 09:20 04/22/20 09:20 04/22/20 09:20 04/22/20 09:20 04/22/20 09:20 - Laboratory Results Critical Laboratory Results Reviewed: No Critical Results - Radiology Results Critical Radiology Results Reviewed: No Critical Results Discharge - Discharge Clinical Impression: Sciatica, right side Condition: Stable Disposition: HOME, SELF-CARE Instructions: Sciatica ([facility]) Additional Instructions: Take the medications as prescribed no driving if taking narcotics for pain. Follow-up with orthopedics for further evaluation and management of your sciatic symptoms especially given that you have had these before. Prescriptions: Prednisone [Deltasone 20 mg Tablet] 2 tab PO DAILY 5 Days #10 tablet Hydrocodone/Acetaminophen [Blakely 5-325 mg Tablet] 1 tab PO Q4 PRN #10 tablet PRN Reason: Diclofenac Sodium [Voltaren 50 Mg Tablet.] 50 mg PO BID #20 tablet. Referrals: ARABELLA BLOCK DO [ACTIVE STAFF] - Follow up as needed
[2020-04-22 11:05] VITALS: BP 137/72
== END 2020-04-22 11:04 | disposition home or self-care (01) ==
LOC: ER 08:27
DX: M54.41 Lumbago with sciatica, right side (principal); I10 Essential (primary) hypertension; F17.200 Nicotine dependence, unspecified, uncomplicated; Z88.6 Allergy status to analgesic agent; Z88.5 Allergy status to narcotic agent; Z88.0 Allergy status to penicillin; Z91.038 Other insect allergy status
CPT/HCPCS: 99284; 96372; J1885; J7512